=== PATIENT | female | born 1935 | race Caucasian/White ===

== ENCOUNTER 2020-06-16 10:35 | Inpatient (IN) | payer MEDICARE ==
[~2020-06-16] VITALS: Ht 147.3 cm; Wt 40.0 kg
--- NOTE | 2020-06-16 11:24 | RAD ---
EXAM: CHEST AP ONLY INDICATION: Reason: soa, cough / Spl. Instructions: / History: . TECHNIQUE: Single view COMPARISON: None FINDINGS: The heart size is normal. Great vessels show mild fullness of the bilateral pulmonary arteries. There is no hilar or mediastinal mass. Lungs are emphysematous and show no focal infiltrates. There is no pleural effusion or pneumothorax. There are no significant osseous abnormalities. IMPRESSION: COPD with mild enlargement of the bilateral pulmonary arteries. Correlate for any evidence of pulmonary arterial hypertension. No focal infiltrates in the lungs. Electronically signed by: King Mendoza MD (06/16/2020 11:21 AM) [id number]
[2020-06-16 11:31] LABS: BASO # 0.1 x10^3/uL (0.0-0.2); BASO % 1 % (0-3); EOS # 0.4 x10^3/uL (0.0-0.7); EOS % 4 % (0-3); HEMATOCRIT 33.6 % (36.0-47.0); HEMOGLOBIN 10.9 g/dL (12.0-15.5); LYMPH # 2.3 x10^3/uL (1.0-4.8); LYMPH % 25 % (24-48); MEAN CORPUSCULAR HEMOGLOBIN 27 pg (25-35); MEAN CORPUSCULAR HGB CONC 32 g/dL (31-37); MEAN CORPUSCULAR VOLUME 85 fL (79-100); MONO # 0.7 x10^3/uL (0.0-1.1); MONO % 7 % (0-9); NEUT # 5.9 x10^3/uL (1.8-7.7); NEUT % 63 % (31-73); PLATELET COUNT 177 x10^3/uL (140-400); RED BLOOD COUNT 3.96 x10^6/uL (3.50-5.40); RED CELL DISTRIBUTION WIDTH 20.5 % (11.5-14.5); WHITE BLOOD COUNT 9.3 x10^3/uL (4.0-11.0)
[2020-06-16 11:42] LABS: CALCIUM 8.9 mg/dL (8.5-10.1); CREATININE 0.9 mg/dL (0.6-1.0); GFR 59.8; POTASSIUM 4.1 mmol/L (3.5-5.1)
[2020-06-16 11:47] LABS: ALBUMIN 3.2 g/dL (3.4-5.0); ALBUMIN/GLOBULIN RATIO 0.7 (1.0-1.7); TOTAL BILIRUBIN 0.7 mg/dL (0.2-1.0); TOTAL PROTEIN 7.9 g/dL (6.4-8.2)
[2020-06-16 12:05] LABS: PROTHROMBIN TIME PATIENT 14.2 SEC (11.7-14.0)
[2020-06-16 12:24] LABS: BILIRUBIN,URINE NEGATIVE (NEG); CLARITY,URINE CLEAR; COLOR,URINE YELLOW; NITRITE,URINE NEGATIVE (NEG); PH,URINE 7.5 (<5.0-8.0); PROTEIN,URINE NEGATIVE (NEG-TRACE); UROBILINOGEN,URINE 0.2 mg/dL (0.2 mg/dL)
--- NOTE | 2020-06-16 12:35 | CONS ---
DATE OF CONSULTATION: 06/16/2020 PULMONARY CONSULTATION ATTENDING PHYSICIAN: Iraida Pathak MD REASON FOR CONSULTATION: Spontaneous pneumothorax. HISTORY OF PRESENT ILLNESS: The patient was brought into [facility] after she had an elective CAT scan for chronic cough done at diagnostic imaging. The CAT scan was reported as 30% pneumothorax and abnormal infiltrates. She was sent to the Emergency Room. In the Emergency Room, where I saw the patient, she appeared to be in no obvious respiratory distress. She was requiring 2 liters of oxygen. She said she has a chronic cough as long as she remembers. She looks very emaciated. She had lost about 50 pounds since the beginning of the year. I have talked to Dr. Pathak and he reports that she had history of colon cancer some 5 years ago. The patient denies any chest pains. No fever. No night sweats. No chills. I reviewed CT chest done at diagnostic imaging. She has right-sided pneumothorax about 30%. She also had some bilateral reticulonodular infiltrates and the right hilum looks prominent with some narrowing of the right bronchus intermedius. PAST MEDICAL HISTORY: 1. History of COPD, could be severe. 2. History of ongoing weight loss. 3. History of colon cancer. SURGERIES: No recent surgeries. ALLERGIES: HYDROCODONE AND MORPHINE. REVIEW OF SYSTEMS: Ten-point system obtained. Pertinent positives discussed in my present illness, otherwise noncontributory. All systems that were negative were reviewed as well. SOCIAL HISTORY: Smoked for about 30 years before quitting. PHYSICAL EXAMINATION: VITAL SIGNS: In the ER were reviewed. Pulse ox was 97% on 2 liters. NECK: Supple. LUNGS: With diminished breath sounds bilaterally. She is very emaciated. ABDOMEN: Soft. EXTREMITIES: With no pitting edema. LABORATORY DATA: Reviewed. Sodium 135, potassium 4.1. BUN 19, creatinine 0.9. Albumin is 3.2. Lipase 443. INR 1.1. IMPRESSION: 1. Acute hypoxic respiratory failure secondary to right-sided spontaneous pneumothorax. Chest x-ray done in the ER shows probably 15% pneumothorax. She is comfortable on 2 liters nasal cannula. 2. Chronic cough along with a 50-pound weight loss since the beginning of the year and bilateral reticulonodular infiltrates on the CT chest and also some bronchiectasis. 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 Malignancy should also be in the differential diagnosis. She does have a slightly narrowing of bronchus intermedius and prominent right hilum. She will benefit from CT chest with IV contrast. 3. History of colon cancer, details of which are not available. RECOMMENDATIONS: 1. We will continue with present oxygen. 2. Follow up chest x-ray to make sure there is no progression of pneumothorax. We will watch her conservatively for now. 3. We will need a CT chest with contrast to better assess for right hilar mass. 4. We will need sputum for AFB to rule out Mycobacterium avium complex infection. 5. Bronchodilators p.r.n. 6. We will obtain records from Dr. Pathak's office regarding history of colon cancer and the treatment and stage at that time. 7. Patient seen in ER. Discussed with ER physician. Discussed with Dr. Pathak. We will follow along with you. cct 35 min CHANDA SHOEMAKER MD DR: SHANON/connor JOB#: [id number] / [id number] RAFAT
[2020-06-16 12:43] LABS: BACTERIA,URINE 0 /HPF (0-FEW); RBC,URINE >40 /HPF (0-2); WBC,URINE 0 /HPF (0-4)
[2020-06-16] MEDS ORDERED: IOHEXOL 300 MG/ML 100ML VIAL. IV ONE (13:00)
[2020-06-16] MEDS ORDERED: ONDANSETRON PF 4 MG/2 ML VIAL. IV PRN (13:15)
[2020-06-16 16:10] VITALS: BP 176/68
--- NOTE | 2020-06-16 17:26 | PHYS DOC ---
Past Medical History Past Medical History: Asthma, COPD, CVA, [place], Stroke, Other Additional Past Medical Histor: "PRE-CANCEROUS COLON MASS" - REMOVED Past Surgical History: Colectomy, Other Additional Past Surgical Histo: BACK SURGERY, NECK SURGERY Smoking Status: Former Smoker Alcohol Use: None General Adult EDM: Chief Complaint: SHORTNESS OF BREATH HPI: HPI: Patient is a 85 year old was brought into [facility] after she had an elective CAT scan for chronic cough done at diagnostic imaging. The CAT scan was reported as 30% pneumothorax and abnormal infiltrates. She was sent to the Emergency Room for evaluation by her family physician, Dr. Webster. In the ER, she appeared to be in no obvious respiratory distress. She was requiring 2 liters of oxygen. She said she has a chronic cough as long as she remembers. She looks very emaciated. She had lost about 50 pounds since the beginning of the year. She also has history of colon cancer. Review of Systems: Review of Systems: Constitutional: Denies fever or chills. [] Eyes: Denies change in visual acuity. [] HENT: Denies nasal congestion or sore throat. [] Respiratory: Positive for cough and shortness of air Cardiovascular: No chest pain. GI: Denies abdominal pain, nausea, vomiting, bloody stools or diarrhea. [] : Denies dysuria. [] Musculoskeletal: Denies back pain or joint pain. [] Integument: Denies rash. [] Neurologic: Denies headache, focal weakness or sensory changes. [] Endocrine: Denies polyuria or polydipsia. [] Lymphatic: Denies swollen glands. [] Psychiatric: Denies depression or anxiety. [] Heart Score: Risk Factors: Risk Factors: DM, Current or recent (<one month) smoker, HTN, HLP, family history of CAD, obesity. Risk Scores: Score 0 - 3: 2.5% MACE over next 6 weeks - Discharge Home Score 4 - 6: 20.3% MACE over next 6 weeks - Admit for Clinical Observation Score 7 - 10: 72.7% MACE over next 6 weeks - Early Invasive Strategies Current Medications: Current Medications Medications (Trade) Dose Ordered Sig/Maia Start Time Stop Time Status Last Admin Dose Admin Iohexol (Omnipaque 300 Mg/ml) 75 ml 1X ONCE 06/16/20 13:00 06/16/20 13:01 IA Allergies: Allergies: Allergies Coded Allergies Type Severity Reaction Last Updated Verified hydrocodone Allergy Intermediate hives 06/16/20 Yes morphine Allergy Intermediate hives 06/16/20 Yes Physical Exam: PE: Constitutional: Well developed, well nourished, no acute distress, non-toxic appearance. [] HENT: Normocephalic, atraumatic, bilateral external ears normal, oropharynx moist, no oral exudates, nose normal. [] Eyes: PERRLA, EOMI, conjunctiva normal, no discharge. [] Neck: Normal range of motion, no tenderness, supple, no stridor. [] Cardiovascular:Heart rate regular rhythm, no murmur [] Lungs & Thorax: Bilateral breath sounds clear to auscultation [] Abdomen: Bowel sounds normal, soft, no tenderness, no masses, no pulsatile masses. [] Skin: Warm, dry, no erythema, no rash. [] Back: No tenderness, no CVA tenderness. [] Extremities: No tenderness, no cyanosis, no clubbing, ROM intact, no edema. [] Neurologic: Alert and oriented X 3, normal motor function, normal sensory function, no focal deficits noted. [] Psychologic: Affect normal, judgement normal, mood normal. [] Current Patient Data: Labs: Laboratory Tests Test 06/16/20 11:10 06/16/20 12:10 White Blood Count 9.3 x10^3/uL (4.0-11.0) Red Blood Count 3.96 x10^6/uL (3.50-5.40) Hemoglobin 10.9 g/dL (12.0-15.5) L Hematocrit 33.6 % (36.0-47.0) L Mean Corpuscular Volume 85 fL (79-100) Mean Corpuscular Hemoglobin 27 pg (25-35) Mean Corpuscular Hemoglobin Concent 32 g/dL (31-37) Red Cell Distribution Width 20.5 % (11.5-14.5) H Platelet Count 177 x10^3/uL (140-400) Neutrophils (%) (Auto) 63 % (31-73) Lymphocytes (%) (Auto) 25 % (24-48) Monocytes (%) (Auto) 7 % (0-9) Eosinophils (%) (Auto) 4 % (0-3) H Basophils (%) (Auto) 1 % (0-3) Neutrophils # (Auto) 5.9 x10^3/uL (1.8-7.7) Lymphocytes # (Auto) 2.3 x10^3/uL (1.0-4.8) Monocytes # (Auto) 0.7 x10^3/uL (0.0-1.1) Eosinophils # (Auto) 0.4 x10^3/uL (0.0-0.7) Basophils # (Auto) 0.1 x10^3/uL (0.0-0.2) Prothrombin Time 14.2 SEC (11.7-14.0) H Prothrombin Time INR 1.1 (0.8-1.1) Activated Partial Thromboplast Time 39 SEC (24-38) H Sodium Level 135 mmol/L (136-145) L Potassium Level 4.1 mmol/L (3.5-5.1) Chloride Level 96 mmol/L (98-107) L Carbon Dioxide Level 34 mmol/L (21-32) H Anion Gap 5 (6-14) L Blood Urea Nitrogen 19 mg/dL (7-20) Creatinine 0.9 mg/dL (0.6-1.0) Estimated GFR (Cockcroft-Gault) 59.8 BUN/Creatinine Ratio 21 (6-20) H Glucose Level 80 mg/dL (70-99) Calcium Level 8.9 mg/dL (8.5-10.1) Total Bilirubin 0.7 mg/dL (0.2-1.0) Aspartate Amino Transferase (AST) 38 U/L (15-37) H Alanine Aminotransferase (ALT) 40 U/L (14-59) Alkaline Phosphatase 76 U/L (46-116) Troponin I Quantitative < 0.017 ng/mL (0.000-0.055) Total Protein 7.9 g/dL (6.4-8.2) Albumin 3.2 g/dL (3.4-5.0) L Albumin/Globulin Ratio 0.7 (1.0-1.7) L Lipase 443 U/L (73-393) H Urine Collection Type Unknown Urine Color Yellow Urine Clarity Clear Urine pH 7.5 (<5.0-8.0) Urine Specific [place] 1.020 (1.000-1.030) Urine Protein Negative mg/dL (NEG-TRACE) Urine Glucose (UA) Negative mg/dL (NEG) Urine Ketones (Stick) Negative mg/dL (NEG) Urine Blood Moderate (NEG) Urine Nitrite Negative (NEG) Urine Bilirubin Negative (NEG) Urine Urobilinogen Dipstick 0.2 mg/dL (0.2 mg/dL) Urine Leukocyte Esterase Negative (NEG) Urine RBC >40 /HPF (0-2) Urine WBC 0 /HPF (0-4) Urine Bacteria 0 /HPF (0-FEW) Laboratory Tests 06/16/20 11:10 Laboratory Tests 06/16/20 11:10 Vital Signs: Vital Signs Date Time Temp Pulse Resp B/P (MAP) Pulse Ox O2 Delivery O2 Flow Rate FiO2 06/16/20 14:16 64 136/63 (87) 97 Nasal Cannula 2.0 06/16/20 10:50 98.3 22 98.3 EKG: EKG: [] Radiology/Procedures: Radiology/Procedures: [][facility] [address] [place] [address] IMAGING REPORT Signed PATIENT: LEROY PAREDES ACCOUNT: [id number] : 1935 LOCATION: ER AGE: 85 SEX: F EXAM STATUS: REG ER ORD. PHYSICIAN: HAYLEY PEREIRA DO REASON: soa, cough PROCEDURE: CHEST AP ONLY ADDENDUM Addendum: On additional review, there is lucency of the periphery of the right lung compatible with a pneumothorax. This could be moderate in size although detailed evaluation is better with cross sectional imaging. There is no evidence of tension. Discussed with Dr. Hayley Pereira by telephone at 11:33 AM on 06/16/2020 Electronically signed by: Velasquez Mendoza MD (06/16/2020 11:33 AM) [id number] DICTATED AND SIGNED BY: VELASQUEZ MENDOZA MD DATE: 06/16/20 1133 CC: IRAIDA WEBSTER MD; HAYLEY PEREIRA DO ~ EXAM: CHEST AP ONLY INDICATION: Reason: soa, cough / Spl. Instructions: / History: . TECHNIQUE: Single view COMPARISON: None FINDINGS: The heart size is normal. Great vessels show mild fullness of the bilateral pulmonary arteries. There is no hilar or mediastinal mass. Lungs are emphysematous and show no focal infiltrates. There is no pleural effusion or pneumothorax. There are no significant osseous abnormalities. IMPRESSION: COPD with mild enlargement of the bilateral pulmonary arteries. Correlate for any evidence of pulmonary arterial hypertension. No focal infiltrates in the lungs. Electronically signed by: Velasquez Mendoza MD (06/16/2020 11:21 AM) [id number] DICTATED and SIGNED BY: VELASQUEZ MENDOZA MD DATE: 06/16/20 1121 Course & Med Decision Making: Course & Med Decision Making Pertinent Labs and Imaging studies reviewed. (See chart for details) [] Dragon Disclaimer: Dragon Disclaimer: This electronic medical record was generated, in whole or in part, using a voice recognition dictation system. Departure Departure Impression: Primary Impression: Suspected 2019 novel coronavirus infection Additional Impression: Pneumothorax Disposition: ADMITTED INPATIENT Admitting Physician: Iraida Webster Condition: STABLE Justicifation of Admission Dx: Justifications for Admission: Justification of Admission Dx: Yes HAYLEY PEREIRA DO Jun 16, 2020 17:26
[2020-06-16] MEDS ORDERED: LEVO50TA72 PO (17:43)
[2020-06-16] MEDS ORDERED: LEVO75TA67 PO (17:43)
[2020-06-16] MEDS ORDERED: CARV25TA2 PO (17:43)
[2020-06-16] MEDS ORDERED: EZET10TA20 PO (17:43)
[2020-06-16] MEDS ORDERED: CLOP75TA PO (17:43)
[2020-06-16] MEDS ORDERED: TRAV5DRO EACHEYE (17:43)
[2020-06-16] MEDS ORDERED: VENTOLIN HFA18 GM INH (17:43)
[2020-06-16] MEDS ORDERED: ALPR0.254 PO (17:43)
[2020-06-16] MEDS ORDERED: METH5TAB2 PO (17:43)
[2020-06-16] MEDS ORDERED: FLUT12AE IH (17:43)
[2020-06-16] MEDS ORDERED: MECL-57 PO (17:43)
[2020-06-16] MEDS ORDERED: FURO20TA3 PO (17:43)
[2020-06-16] MEDS ORDERED: CHOL500021 PO (17:58)
[2020-06-16] MEDS ORDERED: MAGN100T6 PO (17:58)
[2020-06-16] MEDS ORDERED: FLUT9.9S NS (17:58)
[2020-06-16] MEDS ORDERED: LOPE1LIQ89 PO (17:58)
[2020-06-16] MEDS ORDERED: ASPI-630 PO (17:58)
[2020-06-16] MEDS ORDERED: BIOT1CAP3 PO (17:58)
[2020-06-16] MEDS ORDERED: FERR-36 PO (17:58)
[2020-06-16] MEDS ORDERED: LACT1CAP12 PO (17:58)
[2020-06-16] MEDS ORDERED: FLAX10003 PO (17:58)
[2020-06-16] MEDS ORDERED: VIT1TABL PO (17:58)
[2020-06-16] MEDS ORDERED: KRIL1CAP23 PO (17:58)
[2020-06-16] MEDS ORDERED: LORA10TA55 PO (17:58)
[2020-06-16] MEDS ORDERED: MECLIZINE HCL 12.5 MG TABLET. PO PRN (18:15)
[2020-06-16] MEDS ORDERED: VITAMIN B COMPLEX TABLET. PO PRN (18:30)
[2020-06-16] MEDS ORDERED: CETIRIZINE HCL 10 MG TABLET. PO PRN (18:30)
[2020-06-16 19:00] VITALS: BP 137/58
[2020-06-16] MEDS ORDERED: BUDESONIDE 0.5 MG/2 ML NEBU. NEB SCH (20:00)
[2020-06-16] MEDS: ALPRAZolam 0.25 MG TABLET PO SCH (20:46)
[2020-06-16] MEDS: METHADONE 5 MG TABLET. PO SCH (20:46)
[2020-06-16] MEDS: MAGNESIUM OXIDE 400 MG TABLET PO SCH (20:46)
[2020-06-16] MEDS: LATANOPROST 0.005% OPHTH SOLUTION 2.5ML BOTTLE. OU SCH (20:48)
[2020-06-16] MEDS: CARVEDILOL 6.25 MG TABLET. PO SCH (20:48)
[2020-06-16] MEDS: ALBUTEROL SULFATE 2.5 MG/3 ML NEBU. NEB SCH (20:49)
[2020-06-16] MEDS ORDERED: FLAXSEED OIL PO SCH (21:00)
[2020-06-16 23:00] VITALS: BP 146/70
[2020-06-17] MEDS: ALBUTEROL SULFATE 2.5 MG/3 ML NEBU. NEB SCH (00:05)
[2020-06-17] MEDS ORDERED: BUDESONIDE 0.5 MG/2 ML NEBU. NEB PRN (00:45)
[2020-06-17] MEDS ORDERED: ALBUTEROL SULFATE 2.5 MG/3 ML NEBU. NEB PRN (00:45)
[2020-06-17 03:41] VITALS: BP 135/62
[2020-06-17] MEDS: LEVOTHYROXINE 50 MCG TABLET PO SCH (05:50)
--- NOTE | 2020-06-17 06:15 | EKG ---
[facility] [address] [place] [address] Test Date: 2020-06-16 Test Time: 10:56:30 Pat Name: LEROY PAREDES Department: Room: Gender: F Sap Bpc Architect: : 1935 Requested By: HAYLEY PEREIRA Order Number: [id number] Reading MD: Measurements Intervals [place] Rate: 56 P: 63 MN: 188 QRS: -53 QRSD: 82 T: 48 QT: 432 QTc: 419 Interpretive Statements SINUS RHYTHM ABNORMAL LEFT AXIS DEVIATION LEFT ANTERIOR FASCICULAR BLOCK ABNORMAL ECG RI6.02 No previous ECG available for comparison
[2020-06-17 07:30] VITALS: BP 151/56
--- NOTE | 2020-06-17 08:19 | RAD ---
AP chest. HISTORY: Pneumothorax AP view was taken of the chest. There is a persistent small right pneumothorax without change compared to one day ago. The pneumothorax is noted laterally at the apex as well as along the base of the lung. There is diffuse interstitial lung disease. Heart is upper normal in size. The aorta is tortuous. IMPRESSION: 1. No change right pneumothorax. Electronically signed by: Juve Goetz MD (06/17/2020 8:16 AM) [id number]
--- NOTE | 2020-06-17 08:56 | PDOC ---
Provider Note Provider Note Pt seen.H&P to be dictated. Justicifation of Admission Dx: Justifications for Admission: Justification of Admission Dx: Yes BRII WEBSTER MD Jun 17, 2020 08:56
[2020-06-17] MEDS: LOPERAMIDE 2 MG/15 ML ORAL SUSP. PO SCH (09:00)
[2020-06-17] MEDS: FLUTICASONE 50MCG/NASAL SPRAY 16GM BOTTLE. NS SCH (09:00)
[2020-06-17] MEDS ORDERED: BIOTIN PO SCH (09:00)
[2020-06-17] MEDS: ALPRAZolam 0.25 MG TABLET PO SCH ×2 (09:04→20:51)
[2020-06-17] MEDS: CLOPIDOGREL BISULFATE 75 MG TABLET PO SCH (09:04)
[2020-06-17] MEDS: EZETIMIBE 10 MG TABLET. PO SCH (09:04)
[2020-06-17] MEDS: LACTOBACILLUS RHAMNOSUS GG 1 CAPSULE. PO SCH (09:04)
[2020-06-17] MEDS: FERROUS SULFATE 325 MG TABLET. PO SCH (09:04)
[2020-06-17] MEDS: ASPIRIN CHEWABLE 81 MG TABLET. PO SCH (09:04)
[2020-06-17] MEDS: OMEGA-3 FATTY ACIDS/FISH OIL 1,000 MG CAPSULE. PO SCH (09:04)
[2020-06-17] MEDS: FUROSEMIDE 20 MG TABLET PO SCH (09:05)
[2020-06-17] MEDS: CARVEDILOL 6.25 MG TABLET. PO SCH ×2 (09:06→17:00)
[2020-06-17] MEDS: METHADONE 5 MG TABLET. PO SCH ×4 (09:06→20:51)
[2020-06-17] MEDS ORDERED: CONTRAST GIVEN. MC PRN (09:45)
--- NOTE | 2020-06-17 09:59 | HP ---
ADMIT DATE: 06/16/2020 REASON FOR ADMISSION TO THE HOSPITAL: Spontaneous left pneumothorax. HISTORY OF PRESENT ILLNESS: The patient is an 85-year-old female, patient of Dr. Shetty. The patient had a CT of the chest, abdomen and pelvis for weight loss workup and the diagnostic imaging and the radiologist called me staying that the patient had 30% left pneumothorax. The patient was sent to [facility] for evaluation. Had x-ray, shows some pneumothorax. Pulmonary was consulted. The patient was admitted to the inpatient hospital. PAST MEDICAL HISTORY: She has a history of coronary artery disease, COPD, Quintero esophagus, arthritis, hypothyroidism, aortic valve disorder, reflux disease and had a colon cancer in the past. PAST SURGICAL HISTORY: Last colonoscopy in 2006, hysterectomy, colectomy in 2006, knee arthroscopy, neck surgery, bladder repair, partial colon resection in 2007. ALLERGIES: FENTANYL, HYDROCODONE, OXYCODONE AND CODEINE. MEDICATIONS AT HOME: The patient is on aspirin 81 mg daily, atorvastatin 40 mg daily, calcium with vitamin D, Coreg 6.25 twice a day, duloxetine 30 mg daily, fish oil daily, Flonase daily, Flovent 2 puffs twice a day, Lasix 40 mg daily, levothyroxine 75 mcg daily, loratadine 10 mg daily, magnesium 250 mg daily, meclizine for dizziness, methadone 5 mg 3 times a day, pantoprazole 20 mg daily, Plavix 75 mg daily, Travatan eyedrops 1 drop daily both eyes, Ventolin 2 puffs 4 times daily, vitamin B-complex daily, vitamin D daily, Xanax 0.25 p.r.n. twice a day, Zetia 10 mg daily. PERSONAL HISTORY: Former smoker. FAMILY HISTORY: Lung problems, osteoporosis. REVIEW OF SYMPTOMS: Denies any fever. Has some mild shortness of breath. Denies any chest pain. Rest of the 14-system was reviewed. The patient has lost like a significant weight loss in last 1 year and 11/2019, she was 89. Now, she is 89, so she lost 23 pounds in 8 months. PHYSICAL EXAMINATION: VITAL SIGNS: Temperature 98, pulse 80, respirations 20, blood pressure 130/80. HEENT: Head is atraumatic. Pupils equal. Oral cavity: No congestion. NECK: Supple. CHEST: Symmetrical, COPD, emaciated. CARDIOVASCULAR: S1, S2. LUNGS: Clear to auscultation. Decreased breath sounds, few crackles at the bases. ABDOMEN: Soft, bowel sounds present, no mass palpable. EXTERNAL GENITALIA: No Arguelles. RECTAL: Deferred. EXTREMITIES: No calf tenderness, no edema. Pulses 1+. NEUROLOGIC: Moving all extremities. No focal deficits noted. LABORATORY DATA: Shows CBC, chem profile were unremarkable. CT chest shows 30% pneumothorax, infiltrates in the bases. FINAL IMPRESSION: 1. Spontaneous Rt pneumothorax. 2. 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 3. Chronic obstructive pulmonary disease. 4. Significant weight loss. 5. Coronary artery disease. 6. Hypothyroidism. 7. Hypertension. 8. Hyperlipidemia. 9. History of colon cancer in 2007, partial colon resection. PLAN: At this time, admit to hospital. Pulmonary is consulted. Does not need chest tube, oxygen is stable. We will follow serial chest x-rays. We will get the reports of CT scans of abdomen and pelvis and Dr. Calderón is ordering another CT chest with contrast to look at any tumors in the chest. BRII WEBSTER MD DR: KEO/connor JOB#: [id number] / [id number] RAFAT
[2020-06-17] MEDS ORDERED: IOHEXOL 300 MG/ML 100ML VIAL. IV ONE (10:00)
--- NOTE | 2020-06-17 10:48 | PDOC ---
PULMONARY PROGRESS NOTES DATE: 06/17/20 TIME: 10:45 Subjective feels better no soa Vitals Vital Signs Date Time Temp Pulse Resp B/P (MAP) Pulse Ox O2 Delivery O2 Flow Rate FiO2 06/17/20 10:09 16 Nasal Cannula 3.0 06/17/20 09:06 58 151/56 06/17/20 07:30 96.7 98 96.7 General: Alert, No acute distress Lungs: Other (decrease bs) Cardiovascular: S1 Abdomen: Soft Neuro Exam: Alert Extremities: No Edema Skin: Warm Labs Laboratory Tests Test 06/16/20 11:10 06/16/20 12:10 White Blood Count 9.3 x10^3/uL (4.0-11.0) Red Blood Count 3.96 x10^6/uL (3.50-5.40) Hemoglobin 10.9 g/dL (12.0-15.5) Hematocrit 33.6 % (36.0-47.0) Mean Corpuscular Volume 85 fL (79-100) Mean Corpuscular Hemoglobin 27 pg (25-35) Mean Corpuscular Hemoglobin Concent 32 g/dL (31-37) Red Cell Distribution Width 20.5 % (11.5-14.5) Platelet Count 177 x10^3/uL (140-400) Neutrophils (%) (Auto) 63 % (31-73) Lymphocytes (%) (Auto) 25 % (24-48) Monocytes (%) (Auto) 7 % (0-9) Eosinophils (%) (Auto) 4 % (0-3) Basophils (%) (Auto) 1 % (0-3) Neutrophils # (Auto) 5.9 x10^3/uL (1.8-7.7) Lymphocytes # (Auto) 2.3 x10^3/uL (1.0-4.8) Monocytes # (Auto) 0.7 x10^3/uL (0.0-1.1) Eosinophils # (Auto) 0.4 x10^3/uL (0.0-0.7) Basophils # (Auto) 0.1 x10^3/uL (0.0-0.2) Prothrombin Time 14.2 SEC (11.7-14.0) Prothromb Time International Ratio 1.1 (0.8-1.1) Activated Partial Thromboplast Time 39 SEC (24-38) Sodium Level 135 mmol/L (136-145) Potassium Level 4.1 mmol/L (3.5-5.1) Chloride Level 96 mmol/L (98-107) Carbon Dioxide Level 34 mmol/L (21-32) Anion Gap 5 (6-14) Blood Urea Nitrogen 19 mg/dL (7-20) Creatinine 0.9 mg/dL (0.6-1.0) Estimated GFR (Cockcroft-Gault) 59.8 BUN/Creatinine Ratio 21 (6-20) Glucose Level 80 mg/dL (70-99) Calcium Level 8.9 mg/dL (8.5-10.1) Total Bilirubin 0.7 mg/dL (0.2-1.0) Aspartate Amino Transf (AST/SGOT) 38 U/L (15-37) Alanine Aminotransferase (ALT/SGPT) 40 U/L (14-59) Alkaline Phosphatase 76 U/L (46-116) Troponin I Quantitative < 0.017 ng/mL (0.000-0.055) Total Protein 7.9 g/dL (6.4-8.2) Albumin 3.2 g/dL (3.4-5.0) Albumin/Globulin Ratio 0.7 (1.0-1.7) Lipase 443 U/L (73-393) Urine Collection Type Unknown Urine Color Yellow Urine Clarity Clear Urine pH 7.5 (<5.0-8.0) Urine Specific [place] 1.020 (1.000-1.030) Urine Protein Negative mg/dL (NEG-TRACE) Urine Glucose (UA) Negative mg/dL (NEG) Urine Ketones (Stick) Negative mg/dL (NEG) Urine Blood Moderate (NEG) Urine Nitrite Negative (NEG) Urine Bilirubin Negative (NEG) Urine Urobilinogen Dipstick 0.2 mg/dL (0.2 mg/dL) Urine Leukocyte Esterase Negative (NEG) Urine RBC >40 /HPF (0-2) Urine WBC 0 /HPF (0-4) Urine Bacteria 0 /HPF (0-FEW) Laboratory Tests Test 06/16/20 11:10 06/16/20 12:10 White Blood Count 9.3 x10^3/uL (4.0-11.0) Red Blood Count 3.96 x10^6/uL (3.50-5.40) Hemoglobin 10.9 g/dL (12.0-15.5) Hematocrit 33.6 % (36.0-47.0) Mean Corpuscular Volume 85 fL (79-100) Mean Corpuscular Hemoglobin 27 pg (25-35) Mean Corpuscular Hemoglobin Concent 32 g/dL (31-37) Red Cell Distribution Width 20.5 % (11.5-14.5) Platelet Count 177 x10^3/uL (140-400) Neutrophils (%) (Auto) 63 % (31-73) Lymphocytes (%) (Auto) 25 % (24-48) Monocytes (%) (Auto) 7 % (0-9) Eosinophils (%) (Auto) 4 % (0-3) Basophils (%) (Auto) 1 % (0-3) Neutrophils # (Auto) 5.9 x10^3/uL (1.8-7.7) Lymphocytes # (Auto) 2.3 x10^3/uL (1.0-4.8) Monocytes # (Auto) 0.7 x10^3/uL (0.0-1.1) Eosinophils # (Auto) 0.4 x10^3/uL (0.0-0.7) Basophils # (Auto) 0.1 x10^3/uL (0.0-0.2) Prothrombin Time 14.2 SEC (11.7-14.0) Prothromb Time International Ratio 1.1 (0.8-1.1) Activated Partial Thromboplast Time 39 SEC (24-38) Sodium Level 135 mmol/L (136-145) Potassium Level 4.1 mmol/L (3.5-5.1) Chloride Level 96 mmol/L (98-107) Carbon Dioxide Level 34 mmol/L (21-32) Anion Gap 5 (6-14) Blood Urea Nitrogen 19 mg/dL (7-20) Creatinine 0.9 mg/dL (0.6-1.0) Estimated GFR (Cockcroft-Gault) 59.8 BUN/Creatinine Ratio 21 (6-20) Glucose Level 80 mg/dL (70-99) Calcium Level 8.9 mg/dL (8.5-10.1) Total Bilirubin 0.7 mg/dL (0.2-1.0) Aspartate Amino Transf (AST/SGOT) 38 U/L (15-37) Alanine Aminotransferase (ALT/SGPT) 40 U/L (14-59) Alkaline Phosphatase 76 U/L (46-116) Troponin I Quantitative < 0.017 ng/mL (0.000-0.055) Total Protein 7.9 g/dL (6.4-8.2) Albumin 3.2 g/dL (3.4-5.0) Albumin/Globulin Ratio 0.7 (1.0-1.7) Lipase 443 U/L (73-393) Urine Collection Type Unknown Urine Color Yellow Urine Clarity Clear Urine pH 7.5 (<5.0-8.0) Urine Specific [place] 1.020 (1.000-1.030) Urine Protein Negative mg/dL (NEG-TRACE) Urine Glucose (UA) Negative mg/dL (NEG) Urine Ketones (Stick) Negative mg/dL (NEG) Urine Blood Moderate (NEG) Urine Nitrite Negative (NEG) Urine Bilirubin Negative (NEG) Urine Urobilinogen Dipstick 0.2 mg/dL (0.2 mg/dL) Urine Leukocyte Esterase Negative (NEG) Urine RBC >40 /HPF (0-2) Urine WBC 0 /HPF (0-4) Urine Bacteria 0 /HPF (0-FEW) Medications Active Scripts Medications Dose Route/Sig Max Daily Dose Days Date Category Loperamide HCl 1 Mg/7.5 Ml Liquid 2 Mg PO DAILY 06/16/20 Reported Iron (Ferrous Sulfate) 325 Mg Tablet 1 Tab PO DAILY 30 06/16/20 Reported Flax Oil (Flaxseed Oil) 1,000 Mg Capsule 1 Cap PO BID 30 06/16/20 Reported Aspirin 81 Mg Tab.chew 1 Tab PO DAILY 06/16/20 Reported Magnesium Citrate 100 Mg Tablet 1 Tab PO QHS 30 06/16/20 Reported Probiotic & Acidophilus Cap (Lactobac Cmb #3/Fos/Pantethine) 1 Each Capsule 1 Cap PO DAILY 30 06/16/20 Reported Brain Veifj-Mkq-Xu Q10 Tablet (Vit B Cmplx & C#11/Ca/Dha/Q10) 1 Each Tablet 1 Each PO PRN DAILY PRN 06/16/20 Reported Biotin 1 Mg Capsule 1 Cap PO DAILY 30 06/16/20 Reported D3-50 (Cholecalciferol (Vitamin D3)) 50,000 Unit Capsule 1 Cap PO WEEKLY 28 06/16/20 Reported Megared [place]-3 Krill Oil Sfgl (Krill/Om-3/Dha/Epa/Phospho/Ast) 1 Each Capsule 1 Cap PO DAILY 30 06/16/20 Reported Loratadine 10 Mg Tab.rapdis 10 Mg PO PRN DAILY PRN 06/16/20 Reported Flonase Allergy Relief (Fluticasone Propionate) 9.9 Ml [place].susp 2 Sprays NS DAILY 06/16/20 Reported Ventolin Hfa Inhaler (Albuterol Sulfate) 18 Gm Hfa.aer.ad 2 Puff INH Q4HRS 06/16/20 Reported Flovent 110MCG Hfa (Fluticasone Propionate) 12 Gm Aer.w.adap 2 Puff IH BID 06/16/20 Reported Travatan Z (Travoprost) 5 Ml Drops 1 Drop EACHEYE QHS 06/16/20 Reported Alprazolam 0.25 Mg Tablet 1 Tab PO BID 06/16/20 Reported Methadone Hcl 5 Mg Tablet 1 Tab PO QID 06/16/20 Reported Motion-Time (Meclizine HCl) 25 Mg Tab.chew 25 Mg PO PRN PRN 06/16/20 Reported Clopidogrel (Clopidogrel Bisulfate) 75 Mg Tablet 1 Tab PO DAILY 06/16/20 Reported Furosemide 20 Mg Tablet 1 Tab PO DAILY 06/16/20 Reported Carvedilol 25 Mg Tablet 6.25 Mg PO BIDWMEALS 06/16/20 Reported Zetia (Ezetimibe) 10 Mg Tablet 1 Tab PO DAILY 30 06/16/20 Reported Levo-T (Levothyroxine Sodium) 75 Mcg Tablet 1 Tab PO QSASU 30 06/16/20 Reported Levo-T (Levothyroxine Sodium) 50 Mcg Tablet 1 Tab PO DAILY 30 06/16/20 Reported Impression . 1. Acute hypoxic respiratory failure secondary to right-sided spontaneous pneumothorax. Chest x-ray shows probably 15% pneumothorax. She is comfortable on 2 liters nasal cannula. 2. Chronic cough along with a 50-pound weight loss since the beginning of the year and bilateral reticulonodular infiltrates on the CT chest and also some bronchiectasis. 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 Malignancy should also be in the differential diagnosis. She does have a slightly narrowing of bronchus intermedius and prominent right hilum. She will benefit from CT chest with IV contrast. 3. History of colon cancer, per patient it was pre cancerous, had surgery Plan . 1. We will continue with present oxygen. 2. Follow up chest x-ray 06/17 is stable. there is no progression of pne umothorax. We will watch her conservatively for now. 3. CT chest with contrast today to better assess for right hilar mass. 4. We will need sputum for AFB to rule out Mycobacterium avium complex infection. 5. Bronchodilators p.r.n. 6. We will obtain records from Dr. Pathak's office regarding history of colon cancer and the treatment and stage at that time. 7. Discussed with Dr. Pathak. CHANDA SHOEMAKER MD Jun 17, 2020 10:48
[2020-06-17 11:00] VITALS: BP 119/52
--- NOTE | 2020-06-17 12:30 | NUR ---
SW following. Reviewed chart and discussed with RN. Pt from home with spouse. Pt plans to return home at discharge and stated no concerns. Pt on 3l 02 but does not have home 02. SW spoke with pt to coordinate care. Pt stated she recently discharged from [facility] and did complete HH with [facility] per a stroke. SW requested PT/OT orders from RN. Pt on oral medications. Pt COVID pending. Pt on a regular diet. Pt to have CT tomorrow as 2 can't be done within 24 hours of eachother per nursing report. SW to follow.
[2020-06-17 15:00] VITALS: BP 109/53
--- NOTE | 2020-06-17 17:35 | RAD ---
EXAM: CT Chest with IV contrast INDICATION: Reason: PTX, possible right hilar mass / Spl. Instructions: omni 300 60ml / History: TECHNIQUE: Multi-detector row CT images were acquired from the thoracic inlet through the upper abdomen with the use of IV contrast. Sagittal and coronal images were acquired from the transaxial data. All CT scans performed at this facility utilize dose optimization techniques as appropriate to the exam, including the following: Automated exposure control and adjustment of the mA and/or KV according to patient size (this includes techniques or standardized protocols for targeted exams where dose is indication/reason for exam). IV CONTRAST: Administered COMPARISON: Chest x-ray 06/17/2020 at 7:37 AM FINDINGS: CARDIOVASCULAR: Normal caliber thoracic aorta with scattered mural calcifications. There is a two-vessel arch. The pulmonary arteries are sufficiently opacified to exclude a central pulmonary embolus down to the subsegmental levels. Heart is normal in size and shows no pericardial effusion. However, there is concave deformity to the right ventricular chamber. MEDIASTINUM & KAREN: Mild mediastinal adenopathy is present with precarinal node measuring 1.1 cm, and right infrahilar lymph node measuring 1.1 cm. Right hilar adenopathy is also evident with a 1.3 cm node at the right hilum present. LUNGS: Lungs show centrilobular emphysema and numerous tree-in-bud opacities and reticular densities primarily in the periphery of the lungs with more confluent atelectasis or consolidation in the lingula. PLEURAL SPACE: There is a trace right pleural effusion. There is a moderate right pneumothorax. This occupies approximately 20 percent of the right hemithorax. A deep sulcus sign is present. OSSEOUS & SOFT TISSUE: Unremarkable ABDOMEN: The visualized portions of the upper abdomen are unremarkable. IMPRESSION: COPD with reticulonodular densities in the lungs, suggesting sequelae of atypical infection (such as mycobacterium avium intracellulare) with associated mediastinal and right hilar adenopathy. A moderate right pneumothorax is present, associated with concave bowing of the right heart border. Discussed with Dr. Wilde by telephone at 5:30 pm on 06/17/20 Electronically signed by: King Mendoza MD (06/17/2020 5:32 PM) [id number]
[2020-06-17 19:21] VITALS: BP 126/55
[2020-06-17] MEDS: LATANOPROST 0.005% OPHTH SOLUTION 2.5ML BOTTLE. OU SCH (20:51)
[2020-06-17] MEDS: MAGNESIUM OXIDE 400 MG TABLET PO SCH (20:51)
[2020-06-17] MEDS ORDERED: SENNOSIDES 8.6 MG TABLET PO PRN (21:15)
[2020-06-17 23:50] VITALS: BP 116/63
[2020-06-18 03:30] VITALS: BP 143/70
[2020-06-18] MEDS: LEVOTHYROXINE 50 MCG TABLET PO SCH (05:42)
[2020-06-18 07:00] VITALS: BP 125/58
--- NOTE | 2020-06-18 08:29 | PDOC ---
PROGRESS NOTES Date of Service: DATE: 06/18/20 TIME: 08:27 Subjective Subjective coughing up blood tinged sputum Objective Objective Vital Signs Date Time Temp Pulse Resp B/P (MAP) Pulse Ox O2 Delivery O2 Flow Rate FiO2 06/18/20 03:30 98.0 69 24 143/70 (94) 95 Nasal Cannula 2.0 98.0 Intake and Output 06/18/20 07:00 Intake Total 680 ml Balance 680 ml Intake Oral 680 ml # Voids 4 Physical Exam Abdomen: Normal bowel sounds, Soft Heart: Regular rate, Normal S1 Extremities: No clubbing General: Alert, Other (emaciated) HEENT: Atraumatic, Other (few crackes at bases) Neuro: Normal speech Psych/Mental Status: Mental status NL Skin: No breakdown Diagnosis Problem List Problems Medical Problems: (1) Pneumothorax Status: Acute (2) Suspected 2019 novel coronavirus infection Status: Acute Assessment Assessment Problems Medical Problems: (1) Pneumothorax Status: Acute (2) Suspected 2019 novel coronavirus infection Status: Acute FINAL IMPRESSION: 1. Spontaneous Rt pneumothorax. 2. 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 3. Chronic obstructive pulmonary disease. 4. Significant weight loss. 5. Coronary artery disease. 6. Hypothyroidism. 7. Hypertension. 8. Hyperlipidemia. 9. History of colon cancer in 2007, partial colon resection. PLAN: COVID -19 neg sputum c/s pending CT chest -possible atypical mycobacterium. spoke with Dr Calderón. ID consult today pt/ot. labs ok. At this time, admit to hospital. Pulmonary is consulted. Does not need chest tube, oxygen is stable. We will follow serial chest x-rays. We will get the reports of CT scans of abdomen and pelvis and Dr. Calderón is ordering another CT chest with contrast to look at any tumors in the chest. Plan Plan of Care Problems Medical Problems: (1) Pneumothorax Status: Acute (2) Suspected 2019 novel coronavirus infection Status: Acute Comment Review of Relevant I have reviewed the following items lizette (where applicable) has been applied. Labs Microbiology 06/16/20 Blood Culture - Preliminary, Resulted NO GROWTH AFTER 1 DAY Medications Current Medications Aspirin (Aspirin Chewable) 81 mg DAILY PO Last administered on 06/17/20at 09:04; Start 06/17/20 at 09:00 Clopidogrel Bisulfate (Plavix) 75 mg DAILY PO Last administered on 06/17/20at 09:04; Start 06/17/20 at 09:00 Ergocalciferol (Vitamin D2) 50,000 unit WEEKLY PO ; Start 06/23/20 at 09:00 EZETIMIBE (Zetia) 10 mg DAILY PO Last administered on 06/17/20at 09:04; Start 06/17/20 at 09:00 Ferrous Sulfate (Feosol) 325 mg DAILY PO Last administered on 06/17/20 09:04; Start 06/17/20 at 09:00 Fish Oil (Fish Oil) 1,000 mg DAILY PO Last administered on 06/17/20 09:04; Start 06/17/20 at 09:00 Fluticasone Propionate (Flonase) 2 spray DAILY NS Last administered on 06/17/20at 09:00; Start 06/17/20 at 09:00 Furosemide (Lasix) 20 mg DAILY PO Last administered on 06/17/20at 09:05; Start 06/17/20 at 09:00 Info (CONTRAST GIVEN -- Rx MONITORING) 1 each PRN DAILY PRN MC SEE COMMENTS; Start 06/17/20 at 09:45; Stop 06/19/20 at 09:44 Iohexol (Omnipaque 300 Mg/ml) 60 ml 1X ONCE IV Last administered on 06/17/20at 10:00; Start 06/17/20 at 10:00; Stop 06/17/20 at 10:01; Status DC Lactobacillus Rhamnosus (Culturelle) 1 cap DAILY PO Last administered on at 09:04; Start 06/17/20 at 09:00 Levothyroxine Sodium (Synthroid) 75 mcg QSASU@0600 PO ; Start 06/19/20 at 06:00 Loperamide HCl (Immodium Oral Susp) 2 mg DAILY PO ; Start 06/17/20 at 09:00 Non-Formulary Medication (Biotin ) 1 cap DAILY PO ; Start 06/17/20 at 09:00; Status UNV Sennosides (Senna) 8.6 mg PRN BID PRN PO CONSTIPATION 1ST CHOICE Last administered on 06/17/20at 21:37; Start 06/17/20 at 21:15 Vitals/I & O Vital Sign - Last 24 Hours 06/17/20 06/17/20 06/17/20 06/17/20 09:06 09:06 10:09 11:00 Temp 96.8 96.8 Pulse 58 73 Resp 16 16 B/P (MAP) 151/56 119/52 (74) Pulse Ox 99 O2 Delivery Room Air Nasal Cannula Room Air O2 Flow Rate 3.0 06/17/20 06/17/20 06/17/20 06/17/20 13:01 14:05 15:00 16:07 Temp 97.0 97.0 Pulse 82 Resp 12 B/P (MAP) 109/53 (71) Pulse Ox 99 98 98 O2 Delivery Nasal Cannula Nasal Cannula Room Air Nasal Cannula O2 Flow Rate 3.0 3.0 3.0 06/17/20 06/17/20 06/17/20 06/17/20 17:00 19:21 20:00 23:50 Temp 98.0 96.8 98.0 96.8 Pulse 67 75 80 Resp 20 24 B/P (MAP) 99/62 126/55 (78) 116/63 (80) Pulse Ox 95 97 O2 Delivery Nasal Cannula Nasal Cannula Nasal Cannula O2 Flow Rate 2.0 2.0 2.0 06/18/20 03:30 Temp 98.0 98.0 Pulse 69 Resp 24 B/P (MAP) 143/70 (94) Pulse Ox 95 O2 Delivery Nasal Cannula O2 Flow Rate 2.0 Intake and Output 06/17/20 06/17/20 06/18/20 15:00 23:00 07:00 Intake Total 240 ml 240 ml 200 ml Balance 240 ml 240 ml 200 ml Justicifation of Admission Dx: Justifications for Admission: Justification of Admission Dx: Yes Nutrition Consultation Dietary Evaluation: Recommendations by RD: Dietary education by RD, Increase Calorie Intake, Protein supplementation Comments: ensure tid Expected Outcomes/Goals: to meet >75% est nutr needs Interpretation of weight loss: >10% in 6 months Malnutrition Findings: Body Fat Depletion (Non Severe: Mod to Severe Weight Status: Underweight BRII WEBSTER MD Jun 18, 2020 08:29
--- NOTE | 2020-06-18 08:40 | RAD ---
EXAM: PORTABLE CHEST 1V INDICATION: Reason: PTX / Spl. Instructions: / History: . TECHNIQUE: Single view COMPARISON: Chest x-ray previous day at 7:37 AM FINDINGS: The heart size is normal. The great vessels appear unremarkable. There is no hilar or mediastinal mass. Diffuse reticular densities remain present without focal parenchymal consolidation. A moderate right pneumothorax remains present without evidence of mediastinal shift. There are no significant osseous abnormalities. IMPRESSION: Moderate right pneumothorax without mediastinal shift. No significant radiographic interval change. Electronically signed by: King Mendoza MD (06/18/2020 8:37 AM) [id number]
[2020-06-18 09:44] LABS: AMYLASE 99 U/L (25-115); LIPASE 700 U/L (73-393)
--- NOTE | 2020-06-18 10:44 | PDOC ---
PULMONARY PROGRESS NOTES DATE: 06/18/20 TIME: 10:40 Subjective feels better no soa Vitals Vital Signs Date Time Temp Pulse Resp B/P (MAP) Pulse Ox O2 Delivery O2 Flow Rate FiO2 06/18/20 07:00 98.0 81 18 125/58 (80) 99 Nasal Cannula 2.0 98.0 General: Alert, No acute distress Lungs: Other (decrease bs) Cardiovascular: S1 Abdomen: Soft Neuro Exam: Alert Extremities: No Edema Skin: Warm Labs Laboratory Tests Test 06/16/20 11:00 06/16/20 11:10 06/16/20 12:10 06/18/20 09:05 Coronavirus (PCR) Not detected (Not Detected) White Blood Count 9.3 x10^3/uL (4.0-11.0) Red Blood Count 3.96 x10^6/uL (3.50-5.40) Hemoglobin 10.9 g/dL (12.0-15.5) Hematocrit 33.6 % (36.0-47.0) Mean Corpuscular Volume 85 fL (79-100) Mean Corpuscular Hemoglobin 27 pg (25-35) Mean Corpuscular Hemoglobin Concent 32 g/dL (31-37) Red Cell Distribution Width 20.5 % (11.5-14.5) Platelet Count 177 x10^3/uL (140-400) Neutrophils (%) (Auto) 63 % (31-73) Lymphocytes (%) (Auto) 25 % (24-48) Monocytes (%) (Auto) 7 % (0-9) Eosinophils (%) (Auto) 4 % (0-3) Basophils (%) (Auto) 1 % (0-3) Neutrophils # (Auto) 5.9 x10^3/uL (1.8-7.7) Lymphocytes # (Auto) 2.3 x10^3/uL (1.0-4.8) Monocytes # (Auto) 0.7 x10^3/uL (0.0-1.1) Eosinophils # (Auto) 0.4 x10^3/uL (0.0-0.7) Basophils # (Auto) 0.1 x10^3/uL (0.0-0.2) Prothrombin Time 14.2 SEC (11.7-14.0) Prothromb Time International Ratio 1.1 (0.8-1.1) Activated Partial Thromboplast Time 39 SEC (24-38) Sodium Level 135 mmol/L (136-145) Potassium Level 4.1 mmol/L (3.5-5.1) Chloride Level 96 mmol/L (98-107) Carbon Dioxide Level 34 mmol/L (21-32) Anion Gap 5 (6-14) Blood Urea Nitrogen 19 mg/dL (7-20) Creatinine 0.9 mg/dL (0.6-1.0) Estimated GFR (Cockcroft-Gault) 59.8 BUN/Creatinine Ratio 21 (6-20) Glucose Level 80 mg/dL (70-99) Calcium Level 8.9 mg/dL (8.5-10.1) Total Bilirubin 0.7 mg/dL (0.2-1.0) Aspartate Amino Transf (AST/SGOT) 38 U/L (15-37) Alanine Aminotransferase (ALT/SGPT) 40 U/L (14-59) Alkaline Phosphatase 76 U/L (46-116) Troponin I Quantitative < 0.017 ng/mL (0.000-0.055) Total Protein 7.9 g/dL (6.4-8.2) Albumin 3.2 g/dL (3.4-5.0) Albumin/Globulin Ratio 0.7 (1.0-1.7) Lipase 443 U/L (73-393) 700 U/L (73-393) Urine Collection Type Unknown Urine Color Yellow Urine Clarity Clear Urine pH 7.5 (<5.0-8.0) Urine Specific [place] 1.020 (1.000-1.030) Urine Protein Negative mg/dL (NEG-TRACE) Urine Glucose (UA) Negative mg/dL (NEG) Urine Ketones (Stick) Negative mg/dL (NEG) Urine Blood Moderate (NEG) Urine Nitrite Negative (NEG) Urine Bilirubin Negative (NEG) Urine Urobilinogen Dipstick 0.2 mg/dL (0.2 mg/dL) Urine Leukocyte Esterase Negative (NEG) Urine RBC >40 /HPF (0-2) Urine WBC 0 /HPF (0-4) Urine Bacteria 0 /HPF (0-FEW) Amylase Level 99 U/L (25-115) Thyroid Stimulating Hormone (TSH) 5.849 uIU/mL (0.358-3.74) Laboratory Tests Test 06/18/20 09:05 Amylase Level 99 U/L (25-115) Lipase 700 U/L (73-393) Thyroid Stimulating Hormone (TSH) 5.849 uIU/mL (0.358-3.74) Medications Active Scripts Medications Dose Route/Sig Max Daily Dose Days Date Category Loperamide HCl 1 Mg/7.5 Ml Liquid 2 Mg PO DAILY 06/16/20 Reported Iron (Ferrous Sulfate) 325 Mg Tablet 1 Tab PO DAILY 30 06/16/20 Reported Flax Oil (Flaxseed Oil) 1,000 Mg Capsule 1 Cap PO BID 30 06/16/20 Reported Aspirin 81 Mg Tab.chew 1 Tab PO DAILY 06/16/20 Reported Magnesium Citrate 100 Mg Tablet 1 Tab PO QHS 30 06/16/20 Reported Probiotic & Acidophilus Cap (Lactobac Cmb #3/Fos/Pantethine) 1 Each Capsule 1 Cap PO DAILY 30 06/16/20 Reported Brain Zezpy-Asz-Zn Q10 Tablet (Vit B Cmplx & C#11/Ca/Dha/Q10) 1 Each Tablet 1 Each PO PRN DAILY PRN 06/16/20 Reported Biotin 1 Mg Capsule 1 Cap PO DAILY 30 06/16/20 Reported D3-50 (Cholecalciferol (Vitamin D3)) 50,000 Unit Capsule 1 Cap PO WEEKLY 28 06/16/20 Reported Megared Cook Sta-3 Krill Oil Sfgl (Krill/Om-3/Dha/Epa/Phospho/Ast) 1 Each Capsule 1 Cap PO DAILY 30 06/16/20 Reported Loratadine 10 Mg Tab.rapdis 10 Mg PO PRN DAILY PRN 06/16/20 Reported Flonase Allergy Relief (Fluticasone Propionate) 9.9 Ml [place].susp 2 Sprays NS DAILY 06/16/20 Reported Ventolin Hfa Inhaler (Albuterol Sulfate) 18 Gm Hfa.aer.ad 2 Puff INH Q4HRS 06/16/20 Reported Flovent 110MCG Hfa (Fluticasone Propionate) 12 Gm Aer.w.adap 2 Puff IH BID 06/16/20 Reported Travatan Z (Travoprost) 5 Ml Drops 1 Drop EACHEYE QHS 06/16/20 Reported Alprazolam 0.25 Mg Tablet 1 Tab PO BID 06/16/20 Reported Methadone Hcl 5 Mg Tablet 1 Tab PO QID 06/16/20 Reported Motion-Time (Meclizine HCl) 25 Mg Tab.chew 25 Mg PO PRN PRN 06/16/20 Reported Clopidogrel (Clopidogrel Bisulfate) 75 Mg Tablet 1 Tab PO DAILY 06/16/20 Reported Furosemide 20 Mg Tablet 1 Tab PO DAILY 06/16/20 Reported Carvedilol 25 Mg Tablet 6.25 Mg PO BIDWMEALS 06/16/20 Reported Zetia (Ezetimibe) 10 Mg Tablet 1 Tab PO DAILY 30 06/16/20 Reported Levo-T (Levothyroxine Sodium) 75 Mcg Tablet 1 Tab PO QSASU 30 06/16/20 Reported Levo-T (Levothyroxine Sodium) 50 Mcg Tablet 1 Tab PO DAILY 30 06/16/[address] chest COPD with reticulonodular densities in the lungs, suggesting sequelae of atypical infection (such as mycobacterium avium intracellulare) with associated mediastinal and right hilar adenopathy. A moderate right pneumothorax is present, associated with concave bowing of the right heart border. Discussed with Dr. Wilde by telephone at 5:30 pm on 06/17/20 Electronically signed by: King Mendoza MD (06/17/2020 5:32 PM) [id number] Impression . 1. Acute hypoxic respiratory failure secondary to right-sided spontaneous pneumothorax. She is comfortable on 2 liters nasal cannula. 2. Chronic cough along with a 50-pound weight loss since the beginning of the year and bilateral reticulonodular infiltrates on the CT chest and also some bronchiectasis. 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 No obvious Malignancy seen on CT chest 3. History of colon cancer, per patient it was pre cancerous, had surgery Plan . 1. We will continue with present oxygen. 2. Follow up chest x-ray 06/18 is stable. there is no progression of pneumothorax. In fact todays cxr looks better per my review We will watch her conservatively for now for another day 3. CT chest with contrast reviewed. Highly suspected for MAC 4. We will need sputum for AFB to rule out Mycobacterium avium complex infection. results P, 2 sputum sent 5. Bronchodilators p.r.n. 6. consult ID. If MAC is confirmed, will re assess her tolerability for termite treater helper Rx with 3 drugs 7. Discuss[address] with Dr. Pathak. CHANDA SHOEMAKER MD Jun 18, 2020 10:44
[2020-06-18] MEDS: LACTOBACILLUS RHAMNOSUS GG 1 CAPSULE. PO SCH (10:51)
[2020-06-18] MEDS: FERROUS SULFATE 325 MG TABLET. PO SCH (10:51)
[2020-06-18] MEDS: CLOPIDOGREL BISULFATE 75 MG TABLET PO SCH (10:52)
[2020-06-18] MEDS: ALPRAZolam 0.25 MG TABLET PO SCH ×2 (10:52→21:25)
[2020-06-18] MEDS: METHADONE 5 MG TABLET. PO SCH ×4 (10:52→21:48)
[2020-06-18] MEDS: OMEGA-3 FATTY ACIDS/FISH OIL 1,000 MG CAPSULE. PO SCH (10:52)
[2020-06-18] MEDS: FUROSEMIDE 20 MG TABLET PO SCH (10:52)
[2020-06-18] MEDS: CARVEDILOL 6.25 MG TABLET. PO SCH ×2 (10:52→17:57)
[2020-06-18] MEDS: ASPIRIN CHEWABLE 81 MG TABLET. PO SCH (10:53)
[2020-06-18] MEDS: FLUTICASONE 50MCG/NASAL SPRAY 16GM BOTTLE. NS SCH (10:53)
[2020-06-18] MEDS: EZETIMIBE 10 MG TABLET. PO SCH (10:53)
[2020-06-18] MEDS: LOPERAMIDE 2 MG/15 ML ORAL SUSP. PO SCH (10:53)
[2020-06-18 11:00] VITALS: BP 103/56
--- NOTE | 2020-06-18 12:11 | PDOC ---
Infectious Disease Note Vital Signs: Vital Signs Vital Signs Date Time Temp Pulse Resp B/P (MAP) Pulse Ox O2 Delivery O2 Flow Rate FiO2 06/18/20 11:00 97.6 62 18 103/56 (72) 98 Nasal Cannula 2.0 97.6 Medications: Inpatient Meds: Current Medications Medications (Trade) Dose Ordered Sig/Maia Start Time Stop Time Status Last Admin Dose Admin Albuterol Sulfate (Ventolin Neb Soln) 2.5 mg PRN Q4HRS PRN 06/17/20 00:45 Alprazolam (Xanax) 0.25 mg BID 06/16/20 21:00 06/18/20 10:52 0.25 MG Aspirin (Aspirin Chewable) 81 mg DAILY 06/17/20 09:00 06/18/20 10:53 81 MG Budesonide (Pulmicort) 0.5 mg PRN BID PRN 06/17/20 00:45 Carvedilol (Coreg) 6.25 mg BIDWMEALS 06/16/20 18:30 06/18/20 10:52 6.25 MG Cetirizine HCl (ZyrTEC) 10 mg PRN DAILY PRN 06/16/20 18:30 Clopidogrel Bisulfate (Plavix) 75 mg DAILY 06/17/20 09:00 06/18/20 10:52 75 MG Ergocalciferol (Vitamin D2) 50,000 unit WEEKLY 06/23/20 09:00 EZETIMIBE (Zetia) 10 mg DAILY 06/17/20 09:00 06/18/20 10:53 10 MG Ferrous Sulfate (Feosol) 325 mg DAILY 06/17/20 09:00 06/18/20 10:51 325 MG Fish Oil (Fish Oil) 1,000 mg DAILY 06/17/20 09:00 06/18/20 10:52 1,000 MG Fluticasone Propionate (Flonase) 2 spray DAILY 06/17/20 09:00 06/18/20 10:53 2 SPRAY Furosemide (Lasix) 20 mg DAILY 06/17/20 09:00 06/18/20 10:52 20 MG Info (CONTRAST GIVEN -- Rx MONITORING) 1 each PRN DAILY PRN 06/17/20 09:45 06/19/20 09:44 Iohexol (Omnipaque 300 Mg/ml) 60 ml 1X ONCE 06/17/20 10:00 06/17/20 10:01 DC 06/17/20 10:00 60 ML Lactobacillus Rhamnosus (Culturelle) 1 cap DAILY 06/17/20 09:00 06/18/20 10:51 1 CAP Latanoprost (Xalatan) 1 drop QHS 06/16/20 21:00 06/17/20 20:51 1 DROP Levothyroxine Sodium (Synthroid) 75 mcg QSASU@0600 06/19/20 06:00 Loperamide HCl (Immodium Oral Susp) 2 mg DAILY 06/17/20 09:00 06/18/20 10:53 2 MG Magnesium Oxide (Magnesium Oxide) 400 mg QHS 06/16/20 21:00 06/17/20 20:51 400 MG Meclizine HCl (Antivert) 25 mg PRN Q6HRS PRN 06/16/20 18:15 Methadone HCl (Dolophine) 5 mg QID 06/16/20 21:00 06/18/20 10:52 5 MG Non-Formulary Medication (Biotin ) 1 cap DAILY 06/17/20 09:00 UNV Non-Formulary Medication (Flaxseed Oil (Flax Oil)) 1 cap BID 06/16/20 21:00 UNV Ondansetron HCl (Zofran) 4 mg PRN Q8HRS PRN 06/16/20 13:15 06/17/20 13:14 DC Sennosides (Senna) 8.6 mg PRN BID PRN 06/17/20 21:15 06/17/20 21:37 8.6 MG Vitamin B Complex (David B) 1 tab PRN DAILY PRN 06/16/20 18:30 Labs: Lab Laboratory Tests Test 06/18/20 09:05 Amylase Level 99 U/L (25-115) Lipase 700 U/L (73-393) Thyroid Stimulating Hormone (TSH) 5.849 uIU/mL (0.358-3.74) Objective: Assessment: pt seen and examined ID consult dictated Plan: Plan of Care Thank you ARNOLDO RICHMOND MD Jun 18, 2020 12:11
--- NOTE | 2020-06-18 14:29 | CONS ---
DATE OF CONSULTATION: 06/18/2020 REFERRING PHYSICIAN: Iraida Pathak MD REASON FOR CONSULTATION: Possible atypical mycobacterial infection. HISTORY OF PRESENT ILLNESS: An 85-year-old female who was brought to [facility] after she underwent elective CAT scan for chronic cough done [facility]: She was reported to have 30% pneumothorax and abnormal infiltrate. She required 2 liters of O2. The patient has underlying COPD. She also has chronic cough, which has worsened over the last couple of months. She was treated with antibiotic course in [place] by Dr. Shetty, who was her PCP at that time. She has lost about 50 pounds since last 6 months. The patient has a history of colon cancer for which she underwent surgery in the remote past. Denies having any followup colonoscopy done recently as she does not need one by her GI physician. The patient denied any fevers, chills, any history of trauma. Denies any nausea, vomiting, diarrhea, headache, sore throat, difficulty swallowing. Denies any symptoms. Denies worsening shortness of breath. The patient denies any dental pain. COVID was done, which was negative. White count was normal, hemoglobin of 10.9. TSH of 5.849. Lipase of 700. Albumin of 3.2. Blood cultures were done, which are negative. She had a repeat CT scan done here, which showed COPD with reticular nodular densities in the lungs suggesting sequelae of atypical infection such as Mycobacterium avium intracellular with associated mediastinal and right hilar adenopathy. Moderate right pneumothorax is present associated with concave bowing of the right heart border. Repeat chest x-ray today shows moderate right pneumothorax without mediastinal shift. No significant radiographic interval change. ID consult has been requested for further evaluation and treatment. Sputum for AFB has been sent, which is pending at this time. PAST MEDICAL HISTORY: History of COPD, history of colon cancer, ongoing weight loss. SURGERIES: Partial colectomy. ALLERGIES: HYDROCODONE, MORPHINE. SOCIAL HISTORY: Smoked long time back. No alcohol, no illicit drug use. Lives with spouse. No pets. No birds. REVIEW OF SYSTEMS: Negative except for above in HPI. PHYSICAL EXAMINATION: VITAL SIGNS: Temperature 97.6, pulse 62, respiratory rate 18, blood pressure 103/56, oxygen saturation 98% on 2 liters by nasal cannula. GENERAL: Alert, oriented x 3 female, sitting upright in bed, eating lunch, in no acute distress, appears thin, cachectic. HEENT: Normocephalic, atraumatic, anicteric. Dentition fair. No thrush. NECK: Supple, no JVD. LUNGS: Decreased breath sound bilaterally. No wheezing. HEART: S1, S2. ABDOMEN: Soft, nontender, nondistended. EXTREMITIES: No edema, no cyanosis. DERMATOLOGIC: Warm, dry. No generalized rash. NEUROLOGIC: Alert, oriented x 3, grossly nonfocal. PSYCHIATRIC: Calm and cooperative, pleasant. LABORATORY DATA: WBC 9.3, hemoglobin 10.9, hematocrit 33.6, platelets 177. Sodium 135, potassium 4.1, chloride 96, bicarbonate 34, BUN 19, creatinine 0.9, glucose 80, calcium 8.9, total bilirubin 0.7, AST 38, ALT 40, alkaline phosphatase 76. Troponin normal. Albumin 3.2. Amylase 99, lipase 700. TSH 5.849. COVID-19 negative. Micro: UA negative. DIAGNOSTICS: CT chest as above. Chest x-ray as above. IMPRESSION: 1. Chronic cough. 2. Spontaneous pneumothorax. Stable on O2 by [place] 3. Chronic obstructive pulmonary disease, severe. 4. Weight loss. 5. Bronchiectasis with bilateral reticulonodular infiltrates on CT lung, suspicion for atypical Mycobacterium avium infection. Malignancy is also into differential diagnosis. 6. History of colon cancer, status post partial colectomy. 7. Anemia. RECOMMENDATIONS: 1. Follow up sputum AFB. 2. We will send two more specimens. 3. Follow up cultures and monitor labs 4. Maintain aspiration precaution. 5. Continue supportive care. Discussed with Dr. Calderón. Discussed with nursing staff. Thank you for consulting Infectious Disease to participate in this patient's care. If you have any questions, do not hesitate to contact me. ARNOLDO RICHMOND MD DR: GUADALUPE/connor JOB#: [id number] / [id number] RAFAT
[2020-06-18 15:00] VITALS: BP 102/55
--- NOTE | 2020-06-18 17:15 | NUR ---
SW following. Spoke with RN and reviewed chart. Pt not ready for discharge. Discharge plan remains home with spouse and [facility] at discharge. SW completed Patient Choice of Vendor form today as pt requesting HH at discharge. Pt has home 02. Pt not ready for discharge. SW to follow.
--- NOTE | 2020-06-18 18:21 | NUR ---
Pt transferred to room 440 per wheelchair. Report called to Carmencita SCHNEIDER.
[2020-06-18 19:00] VITALS: BP 106/44
[2020-06-18] MEDS: LATANOPROST 0.005% OPHTH SOLUTION 2.5ML BOTTLE. OU SCH (21:00)
[2020-06-18] MEDS: MAGNESIUM OXIDE 400 MG TABLET PO SCH (21:25)
[2020-06-18 23:00] VITALS: BP 115/36
[2020-06-19 00:08] LABS: HEMOGLOBIN A1C 5.5 % (4.8-5.6)
[2020-06-19 03:00] VITALS: BP 124/44
--- NOTE | 2020-06-19 05:51 | PDOC ---
PULMONARY PROGRESS NOTES DATE: 06/19/20 TIME: 05:48 Subjective feels better, on 02 2lpm no soa, has cough, no cp, not on home 02 Vitals Vital Signs Date Time Temp Pulse Resp B/P (MAP) Pulse Ox O2 Delivery O2 Flow Rate FiO2 06/19/20 03:00 98.6 65 18 124/44 (70) 91 Room Air 98.6 06/18/20 23:00 2.0 General: Alert, No acute distress Lungs: Other (decrease bs) Cardiovascular: S1 Abdomen: Soft Neuro Exam: Alert Extremities: No Edema Skin: Warm Labs Laboratory Tests Test 06/18/20 09:05 Hemoglobin A1c 5.5 % (4.8-5.6) Amylase Level 99 U/L (25-115) Lipase 700 U/L (73-393) Thyroid Stimulating Hormone (TSH) 5.849 uIU/mL (0.358-3.74) Laboratory Tests Test 06/18/20 09:05 Hemoglobin A1c 5.5 % (4.8-5.6) Amylase Level 99 U/L (25-115) Lipase 700 U/L (73-393) Thyroid Stimulating Hormone (TSH) 5.849 uIU/mL (0.358-3.74) Medications Active Scripts Medications Dose Route/Sig Max Daily Dose Days Date Category Loperamide HCl 1 Mg/7.5 Ml Liquid 2 Mg PO DAILY 06/16/20 Reported Iron (Ferrous Sulfate) 325 Mg Tablet 1 Tab PO DAILY 30 06/16/20 Reported Flax Oil (Flaxseed Oil) 1,000 Mg Capsule 1 Cap PO BID 30 06/16/20 Reported Aspirin 81 Mg Tab.chew 1 Tab PO DAILY 06/16/20 Reported Magnesium Citrate 100 Mg Tablet 1 Tab PO QHS 30 06/16/20 Reported Probiotic & Acidophilus Cap (Lactobac Cmb #3/Fos/Pantethine) 1 Each Capsule 1 Cap PO DAILY 30 06/16/20 Reported Brain Davit-Wze-Nc Q10 Tablet (Vit B Cmplx & C#11/Ca/Dha/Q10) 1 Each Tablet 1 Each PO PRN DAILY PRN 06/16/20 Reported Biotin 1 Mg Capsule 1 Cap PO DAILY 30 06/16/20 Reported D3-50 (Cholecalciferol (Vitamin D3)) 50,000 Unit Capsule 1 Cap PO WEEKLY 28 06/16/20 Reported Megared [place]-3 Krill Oil Sfgl (Krill/Om-3/Dha/Epa/Phospho/Ast) 1 Each Capsule 1 Cap PO DAILY 30 06/16/20 Reported Loratadine 10 Mg Tab.rapdis 10 Mg PO PRN DAILY PRN 06/16/20 Reported Flonase Allergy Relief (Fluticasone Propionate) 9.9 Ml [place].susp 2 Sprays NS DAILY 06/16/20 Reported Ventolin Hfa Inhaler (Albuterol Sulfate) 18 Gm Hfa.aer.ad 2 Puff INH Q4HRS 06/16/20 Reported Flovent 110MCG Hfa (Fluticasone Propionate) 12 Gm Aer.w.adap 2 Puff IH BID 06/16/20 Reported Travatan Z (Travoprost) 5 Ml Drops 1 Drop EACHEYE QHS 06/16/20 Reported Alprazolam 0.25 Mg Tablet 1 Tab PO BID 06/16/20 Reported Methadone Hcl 5 Mg Tablet 1 Tab PO QID 06/16/20 Reported Motion-Time (Meclizine HCl) 25 Mg Tab.chew 25 Mg PO PRN PRN 06/16/20 Reported Clopidogrel (Clopidogrel Bisulfate) 75 Mg Tablet 1 Tab PO DAILY 06/16/20 Reported Furosemide 20 Mg Tablet 1 Tab PO DAILY 06/16/20 Reported Carvedilol 25 Mg Tablet 6.25 Mg PO BIDWMEALS 06/16/20 Reported Zetia (Ezetimibe) 10 Mg Tablet 1 Tab PO DAILY 30 06/16/20 Reported Levo-T (Levothyroxine Sodium) 75 Mcg Tablet 1 Tab PO QSASU 30 06/16/20 Reported Levo-T (Levothyroxine Sodium) 50 Mcg Tablet 1 Tab PO DAILY 30 06/16/[address] chest COPD with reticulonodular densities in the lungs, suggesting sequelae of atypical infection (such as mycobacterium avium intracellulare) with associated mediastinal and right hilar adenopathy. A moderate right pneumothorax is present, associated with concave bowing of the right heart border. Discussed with Dr. Wilde by telephone at 5:30 pm on 06/17/20 Electronically signed by: King Mendoza MD (06/17/2020 5:32 PM) [id number] Impression . 1. Acute hypoxic respiratory failure secondary to right-sided spontaneous pneumothorax. She is comfortable on 2 liters nasal cannula. 2. Chronic cough along with a 50-pound weight loss since the beginning of the year and bilateral reticulonodular infiltrates on the CT chest and also some bronchiectasis. 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 No obvious Malignancy seen on CT chest 3. History of colon cancer, per patient it was pre cancerous, had surgery Plan . 1. We will continue with present oxygen. 2. Follow up chest x-ray 06/18 is stable. there is no progression of pneumothorax. cxr looks better 3. CT chest with contrast reviewed. Highly suspected for MAC 4. We will need sputum for AFB to rule out Mycobacterium avium complex infection. results P, 2 sputum sent, first afb stain neg 5. Bronchodilators p.r.n. 6. follow ID rec. 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
[2020-06-19] MEDS: LEVOTHYROXINE 75 MCG TABLET PO SCH (06:07)
[2020-06-19 07:00] VITALS: BP 104/43
[2020-06-19] MEDS: CARVEDILOL 6.25 MG TABLET. PO SCH ×2 (08:53→17:00)
[2020-06-19] MEDS: EZETIMIBE 10 MG TABLET. PO SCH (08:53)
[2020-06-19] MEDS: ALPRAZolam 0.25 MG TABLET PO SCH ×2 (08:54→21:17)
[2020-06-19] MEDS: FUROSEMIDE 20 MG TABLET PO SCH (08:54)
[2020-06-19] MEDS: LACTOBACILLUS RHAMNOSUS GG 1 CAPSULE. PO SCH (08:54)
[2020-06-19] MEDS: OMEGA-3 FATTY ACIDS/FISH OIL 1,000 MG CAPSULE. PO SCH (08:54)
[2020-06-19] MEDS: FLUTICASONE 50MCG/NASAL SPRAY 16GM BOTTLE. NS SCH (08:55)
[2020-06-19] MEDS: CLOPIDOGREL BISULFATE 75 MG TABLET PO SCH (08:55)
[2020-06-19] MEDS: METHADONE 5 MG TABLET. PO SCH ×4 (08:55→21:17)
[2020-06-19] MEDS: ASPIRIN CHEWABLE 81 MG TABLET. PO SCH (08:55)
[2020-06-19] MEDS: FERROUS SULFATE 325 MG TABLET. PO SCH (08:56)
[2020-06-19] MEDS: LOPERAMIDE 2 MG/15 ML ORAL SUSP. PO SCH (09:00)
--- NOTE | 2020-06-19 10:22 | PDOC ---
IM PROGRESS NOTES- Subjective Subjective Has cough and congestion Objective Vitals/I&O Vital Signs Date Time Temp Pulse Resp B/P (MAP) Pulse Ox O2 Delivery O2 Flow Rate FiO2 06/19/20 08:55 20 Nasal Cannula 2.0 06/19/20 08:53 61 104/43 06/19/20 07:00 98.2 98 98.2 I & O 06/18/20 06/18/20 06/19/20 15:00 23:00 07:00 Intake Total 760 ml 600 ml 100 ml Balance 760 ml 600 ml 100 ml Physical Exam Physical Exam General appearance -alert, chronically ill-appearing in mild distress Mental Status - alert, oriented to person, place, and time, affect appropriate to mood Head - normal Chest -decreased breath sounds at bases, occasional coarse breath sounds Heart - S1 and S2 normal Abdomen - soft, non tender Neurological - alert and oriented Extremities - no pedal edema Skin - warm and dry Meds Current Medications Medications (Trade) Dose Ordered Sig/Maia Route PRN Reason Start Time Stop Time Status Last Admin Dose Admin Levothyroxine Sodium (Synthroid) 75 mcg QSASU@0600 PO 06/19/20 06:00 06/19/20 06:07 Assessment Assessment Problems Medical Problems: (1) Pneumothorax Status: Acute (2) Suspected 2019 novel coronavirus infection Status: Acute FINAL IMPRESSION: 1. Spontaneous Rt pneumothorax. 2. 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 3. Chronic obstructive pulmonary disease. 4. Significant weight loss. 5. Coronary artery disease. 6. Hypothyroidism. 7. Hypertension. 8. Hyperlipidemia. 9. History of colon cancer in 2007, partial colon resection. PLAN: COVID -19 neg sputum c/s pending CT chest -possible atypical mycobacterium. spoke with Dr Calderón. ID consult today PT/OT evaluation and treatment More cultures have been ordered by infectious disease specialist. One AFB culture stain is negative Plan Plan For more details regarding further plans, please refer to the orders. Justicifation of Admission Dx: Justifications for Admission: Justification of Admission Dx: Yes Nutrition Consultation Dietary Evaluation: Recommendations by RD: Dietary education by RD, Increase Calorie Intake, Protein supplementation Comments: ensure tid Expected Outcomes/Goals: to meet >75% est nutr needs Interpretation of weight loss: >10% in 6 months Malnutrition Findings: Body Fat Depletion (Non Severe: Mod to Severe Weight Status: Underweight MONICA CASTRO MD Jun 19, 2020 10:22
[2020-06-19] MEDS: IPRATRPIUM/ALBUTEROL 0.5/2.5MG 3 ML NEBU. NEB SCH ×3 (10:49→19:31)
[2020-06-19] MEDS: BUDESONIDE 0.5 MG/2 ML NEBU. NEB SCH ×2 (10:49→19:31)
[2020-06-19 11:00] VITALS: BP 113/39
--- NOTE | 2020-06-19 11:10 | RAD ---
Examination: PORTABLE CHEST 1V History: Reason: PTX / Spl. Instructions: / History: Comparison/Correlation: 06/17/2020 CT chest with contrast, 06/18/2020 Portable Chest X-ray Exam Findings: Portable upright frontal view chest was obtained. Heart size normal. Interstitial thickening lung quezada diffusely seen. Known right-sided pneumothorax is again evident with no significant change concerning differences in positioning. Minimal basilar aspect of the pneumothorax is more clearly evident on the current exam compared to the prior exam. Impression: No significant change in right-sided pneumothorax. Electronically signed by: Pete Mckeon MD (06/19/2020 11:07 AM) [id number]
--- NOTE | 2020-06-19 13:21 | PDOC ---
Infectious Disease Note Subjective Subjective Denies increase SOA or cough 1L O2 Eating 100% meals + BM Denies F/C/N/V ROS ROS as mentioned above Vital Sign Vital Signs Vital Signs Date Time Temp Pulse Resp B/P (MAP) Pulse Ox O2 Delivery O2 Flow Rate FiO2 06/19/20 11:00 97.8 62 18 113/39 (63) 100 Room Air 97.8 06/19/20 10:50 2.0 Physical Exam PHYSICAL EXAM GENERAL: Sitting on the side of the bed, alert and eating. Thin HEENT: Oral cavity, clear. Dentition fair. No thrush. NECK: Supple, no JVD. LUNGS: Decreased breath sound bilaterally. No wheezing. HEART: S1, S2. ABDOMEN: Soft, nontender, nondistended. EXTREMITIES: No edema, no cyanosis. DERMATOLOGIC: Warm, dry. No generalized rash. NEUROLOGIC: Alert, oriented x 3, grossly nonfocal. PSYCHIATRIC: Calm and cooperative, pleasant. PIV Labs Micro Microbiology 06/17. AFB SPECIMEN PROCESSING Final Concentration AFB CULTURE FINAL PENDING AFB CULTURE GRAM STAIN Final Negative 06/16/20 Blood Culture - Preliminary, Resulted NO GROWTH AFTER 3 DAYS Objective Assessment Chronic cough. Spontaneous pneumothorax. Stable on O2 by [place] Chronic obstructive pulmonary disease, severe. Weight loss. Bronchiectasis with bilateral reticulonodular infiltrates on CT lung, suspicion for atypical Mycobacterium avium infection. Malignancy is also into differential diagnosis. History of colon cancer, status post partial colectomy. Anemia. Plan Plan of Care 1st AFB smear negative Sputum AFB specimen to sample sent, results pending at this Follow up cultures and monitor labs Maintain aspiration precaution. Continue supportive care. Attending Co-Sign Attending Co-Sign Attending Co-Sign The patient was seen and examined at the bedside. The chart was reviewed. The case was discussed. Agree with the plan of care. SOPHIE SANTOS APRN Jun 19, 2020 13:21 ARNOLDO RICHMOND MD Jun 19, 2020 13:22
[2020-06-19 15:00] VITALS: BP 93/44
[2020-06-19 19:00] VITALS: BP 118/42
[2020-06-19] MEDS: LATANOPROST 0.005% OPHTH SOLUTION 2.5ML BOTTLE. OU SCH (21:16)
[2020-06-19] MEDS: MAGNESIUM OXIDE 400 MG TABLET PO SCH (21:17)
[2020-06-19 23:00] VITALS: BP 144/35
[2020-06-20 02:49] VITALS: BP 93/36
[2020-06-20] MEDS: LEVOTHYROXINE 75 MCG TABLET PO SCH (05:57)
[2020-06-20 07:00] VITALS: BP 120/56
[2020-06-20] MEDS: IPRATRPIUM/ALBUTEROL 0.5/2.5MG 3 ML NEBU. NEB SCH ×4 (07:33→19:43)
[2020-06-20] MEDS: BUDESONIDE 0.5 MG/2 ML NEBU. NEB SCH ×2 (07:33→19:43)
[2020-06-20] MEDS: LOPERAMIDE 2 MG/15 ML ORAL SUSP. PO SCH (09:00)
--- NOTE | 2020-06-20 09:23 | PDOC ---
PULMONARY PROGRESS NOTES DATE: 06/20/20 TIME: 09:22 Subjective feels better, on ra no soa, has cough, no cp, not on home 02 Vitals Vital Signs Date Time Temp Pulse Resp B/P (MAP) Pulse Ox O2 Delivery O2 Flow Rate FiO2 06/20/20 07:34 94 Room Air 06/20/20 07:00 98.6 77 18 120/56 (77) 98.6 06/19/20 23:00 1.0 General: Alert, No acute distress Lungs: Other (decrease bs) Cardiovascular: S1 Abdomen: Soft Neuro Exam: Alert Extremities: No Edema Skin: Warm Medications Active Scripts Medications Dose Route/Sig Max Daily Dose Days Date Category Loperamide HCl 1 Mg/7.5 Ml Liquid 2 Mg PO DAILY 06/16/20 Reported Iron (Ferrous Sulfate) 325 Mg Tablet 1 Tab PO DAILY 30 06/16/20 Reported Flax Oil (Flaxseed Oil) 1,000 Mg Capsule 1 Cap PO BID 30 06/16/20 Reported Aspirin 81 Mg Tab.chew 1 Tab PO DAILY 06/16/20 Reported Magnesium Citrate 100 Mg Tablet 1 Tab PO QHS 30 06/16/20 Reported Probiotic & Acidophilus Cap (Lactobac Cmb #3/Fos/Pantethine) 1 Each Capsule 1 Cap PO DAILY 30 06/16/20 Reported Brain Mrhpn-Tfx-Ic Q10 Tablet (Vit B Cmplx & C#11/Ca/Dha/Q10) 1 Each Tablet 1 Each PO PRN DAILY PRN 06/16/20 Reported Biotin 1 Mg Capsule 1 Cap PO DAILY 30 06/16/20 Reported D3-50 (Cholecalciferol (Vitamin D3)) 50,000 Unit Capsule 1 Cap PO WEEKLY 28 06/16/20 Reported Megared [place]-3 Krill Oil Sfgl (Krill/Om-3/Dha/Epa/Phospho/Ast) 1 Each Capsule 1 Cap PO DAILY 30 06/16/20 Reported Loratadine 10 Mg Tab.rapdis 10 Mg PO PRN DAILY PRN 06/16/20 Reported Flonase Allergy Relief (Fluticasone Propionate) 9.9 Ml [place].susp 2 Sprays NS DAILY 06/16/20 Reported Ventolin Hfa Inhaler (Albuterol Sulfate) 18 Gm Hfa.aer.ad 2 Puff INH Q4HRS 06/16/20 Reported Flovent 110MCG Hfa (Fluticasone Propionate) 12 Gm Aer.w.adap 2 Puff IH BID 06/16/20 Reported Travatan Z (Travoprost) 5 Ml Drops 1 Drop EACHEYE QHS 06/16/20 Reported Alprazolam 0.25 Mg Tablet 1 Tab PO BID 06/16/20 Reported Methadone Hcl 5 Mg Tablet 1 Tab PO QID 06/16/20 Reported Motion-Time (Meclizine HCl) 25 Mg Tab.chew 25 Mg PO PRN PRN 06/16/20 Reported Clopidogrel (Clopidogrel Bisulfate) 75 Mg Tablet 1 Tab PO DAILY 06/16/20 Reported Furosemide 20 Mg Tablet 1 Tab PO DAILY 06/16/20 Reported Carvedilol 25 Mg Tablet 6.25 Mg PO BIDWMEALS 06/16/20 Reported Zetia (Ezetimibe) 10 Mg Tablet 1 Tab PO DAILY 30 06/16/20 Reported Levo-T (Levothyroxine Sodium) 75 Mcg Tablet 1 Tab PO QSASU 30 06/16/20 Reported Levo-T (Levothyroxine Sodium) 50 Mcg Tablet 1 Tab PO DAILY 30 06/16/20 Reported Comments cxr 06/20, reviewed No significant change in small right-sided pneumothorax. No significant change in pulmonary aeration. ct chest COPD with reticulonodular densities in the lungs, suggesting sequelae of atypical infection (such as mycobacterium avium intracellulare) with associated mediastinal and right hilar adenopathy. A moderate right pneumothorax is present, associated with concave bowing of the right heart border. Impression . 1. Acute hypoxic respiratory failure secondary to right-sided spontaneous pneumothorax. She is comfortable on 2 liters nasal cannula. 2. Chronic cough along with a 50-pound weight loss since the beginning of the year and bilateral reticulonodular infiltrates on the CT chest and also some bronchiectasis. 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 No obvious Malignancy seen on CT chest 3. History of colon cancer, per patient it was pre cancerous, had surgery Plan . 1. will start oxygen 2 lpm, would help w ptx reabsorption. 2. Follow up chest x-ray 06/20 is stable. there is no progression of pneumothorax. cxr pa and lat in am 3. CT chest with contrast reviewed. Highly suspected for MAC 4. We will need sputum for AFB to rule out Mycobacterium avium complex infection. results P, 3 sputum sent, 2 afb stain neg 5. Bronchodilators p.r.n. 6. follow ID rec. 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
--- NOTE | 2020-06-20 09:31 | RAD ---
Examination: PORTABLE CHEST 1V History: Reason: PTX / Spl. Instructions: / History: Comparison/Correlation: 06/19/2020 Findings: Portable upright chest x-ray was performed. Heart size is normal. Diffuse interstitial thickening lung quezada noted. No focal consolidation. Calcified granulomas are present. Focal interstitial infiltrate in the lateral right mid thoracic level superior to the minor fissure is present. Small right-sided pneumothorax with an apical and basilar components again seen. Impression: No significant change in small right-sided pneumothorax. No significant change in pulmonary aeration. Electronically signed by: Pete Mckeon MD (06/20/2020 9:29 AM) [id number]
--- NOTE | 2020-06-20 09:42 | PDOC ---
IM PROGRESS NOTES- Subjective Subjective Has cough and congestion. Restarted back on oxygen by nasal cannula 2 L/min this morning Objective Vitals/I&O Vital Signs Date Time Temp Pulse Resp B/P (MAP) Pulse Ox O2 Delivery O2 Flow Rate FiO2 06/20/20 07:34 94 Room Air 06/20/20 07:00 98.6 77 18 120/56 (77) 98.6 06/19/20 23:00 1.0 I & O 06/19/20 06/19/20 06/20/20 15:00 23:00 07:00 Intake Total 400 ml Balance 400 ml Physical Exam Physical Exam General appearance -alert, chronically ill-appearing in mild distress Mental Status - alert, oriented to person, place, and time, affect appropriate to mood Head - normal Chest -decreased breath sounds at bases, occasional coarse breath sounds Heart - S1 and S2 normal Abdomen - soft, non tender Neurological - alert and oriented Extremities - no pedal edema Skin - warm and dry Meds Current Medications Medications (Trade) Dose Ordered Sig/Maia Route PRN Reason Start Time Stop Time Status Last Admin Dose Admin Budesonide (Pulmicort) 0.5 mg RTBID [facility] 06/19/20 10:00 06/20/20 07:33 Albuterol/ Ipratropium (Duoneb) 3 ml RTQID [facility] 06/19/20 12:00 06/20/20 07:33 Assessment Assessment Problems Medical Problems: (1) Pneumothorax Status: Acute (2) Suspected 2019 novel coronavirus infection Status: Acute FINAL IMPRESSION: 1. Spontaneous Rt pneumothorax. 2. 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 3. Chronic obstructive pulmonary disease. 4. Significant weight loss. 5. Coronary artery disease. 6. Hypothyroidism. 7. Hypertension. 8. Hyperlipidemia. 9. History of colon cancer in 2007, partial colon resection. PLAN: COVID -19 neg sputum c/s pending CT chest -possible atypical mycobacterium. spoke with Dr Calderón. ID consult today PT/OT evaluation and treatment More cultures have been ordered by infectious disease specialist. One AFB stain is negative Has elevated Lipase. Pneumothorax-restarted oxygen by nasal cannula 2 L/min this morning. Chest x- ray today shows no change in pneumothorax. Plan Plan For more details regarding further plans, please refer to the orders. Justicifation of Admission Dx: Justifications for Admission: Justification of Admission Dx: Yes Nutrition Consultation Dietary Evaluation: Recommendations by RD: Dietary education by RD, Increase Calorie Intake, Protein supplementation Comments: ensure tid Expected Outcomes/Goals: to meet >75% est nutr needs Interpretation of weight loss: >10% in 6 months Malnutrition Findings: Body Fat Depletion (Non Severe: Mod to Severe Weight Status: Underweight MONICA CASTRO MD Jun 20, 2020 09:42
[2020-06-20] MEDS: OMEGA-3 FATTY ACIDS/FISH OIL 1,000 MG CAPSULE. PO SCH (10:24)
[2020-06-20] MEDS: LACTOBACILLUS RHAMNOSUS GG 1 CAPSULE. PO SCH (10:24)
[2020-06-20] MEDS: CLOPIDOGREL BISULFATE 75 MG TABLET PO SCH (10:24)
[2020-06-20] MEDS: FERROUS SULFATE 325 MG TABLET. PO SCH (10:24)
[2020-06-20] MEDS: FUROSEMIDE 20 MG TABLET PO SCH (10:25)
[2020-06-20] MEDS: CARVEDILOL 6.25 MG TABLET. PO SCH ×2 (10:25→17:00)
[2020-06-20] MEDS: ASPIRIN CHEWABLE 81 MG TABLET. PO SCH (10:25)
[2020-06-20] MEDS: METHADONE 5 MG TABLET. PO SCH ×3 (10:26→19:34)
[2020-06-20] MEDS: FLUTICASONE 50MCG/NASAL SPRAY 16GM BOTTLE. NS SCH (10:26)
[2020-06-20] MEDS: EZETIMIBE 10 MG TABLET. PO SCH (10:26)
[2020-06-20] MEDS: ALPRAZolam 0.25 MG TABLET PO SCH ×2 (10:26→21:55)
[2020-06-20 11:00] VITALS: BP 136/47
--- NOTE | 2020-06-20 11:10 | PDOC ---
Infectious Disease Note Subjective Subjective c/o her bottom hurting from sitting all the time. Got up and stretched some Requesting a cup of coffee Denies increase SOA or cough On 2L O2 Denies F/C/N/V ROS ROS as mentioned above Vital Sign Vital Signs Vital Signs Date Time Temp Pulse Resp B/P (MAP) Pulse Ox O2 Delivery O2 Flow Rate FiO2 06/20/20 10:26 20 Nasal Cannula 2.0 06/20/20 10:25 77 120/56 06/20/20 07:34 94 06/20/20 07:00 98.6 98.6 Physical Exam PHYSICAL EXAM GENERAL: Propped up in bed, alert in NAD, thin HEENT: Oral cavity, clear. Dentition fair. No thrush. NECK: Supple, no JVD. LUNGS: Decreased breath sound bilaterally. No wheezing. HEART: S1, S2. ABDOMEN: Soft, nontender, nondistended. EXTREMITIES: No edema, no cyanosis. DERMATOLOGIC: Warm, dry. No generalized rash. NEUROLOGIC: Alert, oriented x 3, grossly nonfocal. PSYCHIATRIC: Calm and cooperative, pleasant. PIV Labs Lab CXR, 06/20. Impression: No significant change in small right-sided pneumothorax. No significant change in pulmonary aeration. Micro 06/17. AFB SPECIMEN PROCESSING Final Concentration AFB CULTURE FINAL PENDING AFB CULTURE GRAM STAIN Final Negative 06/18. AFB CULTURE GRAM STAIN Final Negative 06/16/20 Blood Culture - Preliminary, Resulted NO GROWTH AFTER 4 DAYS Objective Assessment Chronic cough. Spontaneous pneumothorax. Stable on O2 by [place] Chronic obstructive pulmonary disease, severe. Weight loss. Bronchiectasis with bilateral reticulonodular infiltrates on CT lung, suspicion for atypical Mycobacterium avium infection. Malignancy is also into differential diagnosis. History of colon cancer, status post partial colectomy. Anemia. Plan Plan of Care Continue to observe off antibiotics 1st and 2nd AFB smear negative Awaiting a 3rd AFB Follow up cultures and monitor labs Maintain aspiration precaution. Continue supportive care. PT and OT D/w nursing Patient seen and examined. Labs, micro, and chart reviewed. I agree with the above DIMENSIONAL INTEGRATION ENGINEER. SOPHIE SANTOS APRN Jun 20, 2020 11:10 ARNOLDO RICHMOND MD Jun 20, 2020 15:02
[2020-06-20 15:00] VITALS: BP 112/32
[2020-06-20 19:00] VITALS: BP 112/41
[2020-06-20] MEDS: MAGNESIUM OXIDE 400 MG TABLET PO SCH (21:54)
[2020-06-20] MEDS: LATANOPROST 0.005% OPHTH SOLUTION 2.5ML BOTTLE. OU SCH (21:55)
[2020-06-20 22:59] VITALS: BP 138/42
[2020-06-21] MEDS: METHADONE 5 MG TABLET. PO SCH ×3 (00:49→13:12)
[2020-06-21 03:12] VITALS: BP 106/39
[2020-06-21] MEDS: LEVOTHYROXINE 50 MCG TABLET PO SCH (06:01)
[2020-06-21 07:00] VITALS: BP 105/45
[2020-06-21] MEDS: IPRATRPIUM/ALBUTEROL 0.5/2.5MG 3 ML NEBU. NEB SCH ×2 (07:07→11:25)
[2020-06-21] MEDS: BUDESONIDE 0.5 MG/2 ML NEBU. NEB SCH (07:07)
[2020-06-21] MEDS: CARVEDILOL 6.25 MG TABLET. PO SCH (08:00)
--- NOTE | 2020-06-21 08:47 | PDOC ---
PROGRESS NOTES Date of Service: DATE: 06/21/20 TIME: 08:45 Subjective Subjective feel scarlett , want to go home Objective Objective Vital Signs Date Time Temp Pulse Resp B/P (MAP) Pulse Ox O2 Delivery O2 Flow Rate FiO2 06/21/20 07:08 97 Nasal Cannula 2.0 06/21/20 03:12 97.5 67 20 106/39 (61) 97.5 Intake and Output 06/21/20 07:00 Intake Total 700 ml Output Total 200 ml Balance 500 ml Intake Oral 700 ml Output Urine Total 200 ml # Voids 2 Physical Exam Abdomen: Normal bowel sounds, Soft Heart: Regular rate, Normal S1 Extremities: No clubbing General: Alert, Other (emaciated) HEENT: Atraumatic, Other (few crackes at bases) Neuro: Normal speech Psych/Mental Status: Mental status NL Skin: No breakdown Diagnosis Problem List Problems Medical Problems: (1) Pneumothorax Status: Acute (2) Suspected 2019 novel coronavirus infection Status: Acute Assessment Assessment Problems Medical Problems: (1) Pneumothorax Status: Acute (2) Suspected 2019 novel coronavirus infection Status: Acute FINAL IMPRESSION: 1. Spontaneous Rt pneumothorax. 2. 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 3. Chronic obstructive pulmonary disease. 4. Significant weight loss. 5. Coronary artery disease. 6. Hypothyroidism. 7. Hypertension. 8. Hyperlipidemia. 9. History of colon cancer in 2007, partial colon resection. PLAN: AFB 2 specimens-neg suspect Atypical mycobacterium can d/c home and f/u out pt. home health may need oxygen for home use. COVID -19 neg sputum c/s pending CT chest -possible atypical mycobacterium. spoke with Dr Calderón. ID consult today PT/OT evaluation and treatment More cultures have been ordered by infectious disease specialist. One AFB stain is negative Has elevated Lipase. Pneumothorax-restarted oxygen by nasal cannula 2 L/min this morning. Chest x- ray today shows no change in pneumothorax. Plan Plan of Care Problems Medical Problems: (1) Pneumothorax Status: Acute (2) Suspected 2019 novel coronavirus infection Status: Acute Comment Review of Relevant I have reviewed the following items lizette (where applicable) has been applied. Labs Microbiology 06/18/20 AFB Specimen Processing Tissue - Final, Resulted 06/18/20 Acid Fast Bacilli Culture, Resulted Pending 06/18/20 Gram Stain - Final, Resulted 06/16/20 Blood Culture - Preliminary, Resulted NO GROWTH AFTER 4 DAYS Medications Current Medications Ergocalciferol (Vitamin D2) 50,000 unit WEEKLY PO ; Start 06/23/20 at 09:00 Vitals/I & O Vital Sign - Last 24 Hours 06/20/20 06/20/20 06/20/20 06/20/20 10:25 10:26 11:00 11:22 Temp 97.6 97.6 Pulse 77 75 Resp 20 18 B/P (MAP) 120/56 136/47 (76) Pulse Ox 99 97 O2 Delivery Nasal Cannula Room Air Nasal Cannula O2 Flow Rate 2.0 2.0 06/20/20 06/20/20 06/20/20 06/20/20 11:26 15:00 15:52 16:52 Temp 98.3 98.3 Pulse 70 Resp 20 18 20 20 B/P (MAP) 112/32 (58) Pulse Ox 99 O2 Delivery Nasal Cannula Room Air Nasal Cannula Nasal Cannula O2 Flow Rate 2.0 2.0 2.0 06/20/20 06/20/20 06/20/20 06/20/20 19:00 19:34 19:44 20:00 Temp 98.4 98.4 Pulse 80 Resp 16 20 B/P (MAP) 112/41 (64) Pulse Ox 99 97 O2 Delivery Nasal Cannula Room Air Nasal Cannula Nasal Cannula O2 Flow Rate 2.0 2.0 2.0 2.0 06/20/20 06/20/20 06/21/20 06/21/20 20:34 22:59 00:49 01:59 Temp 98.9 98.9 Pulse 77 Resp 18 B/P (MAP) 138/42 (74) Pulse Ox 100 O2 Delivery Nasal Cannula Nasal Cannula Nasal Cannula Nasal Cannula O2 Flow Rate 2.0 2.0 2.0 2.0 06/21/20 06/21/20 03:12 07:08 Temp 97.5 97.5 Pulse 67 Resp 20 B/P (MAP) 106/39 (61) Pulse Ox 97 97 O2 Delivery Nasal Cannula Nasal Cannula O2 Flow Rate 2.0 2.0 Intake and Output 06/20/20 06/20/20 06/21/20 15:00 23:00 07:00 Intake Total 400 ml 300 ml Output Total 200 ml Balance 200 ml 300 ml Justicifation of Admission Dx: Justifications for Admission: Justification of Admission Dx: Yes Nutrition Consultation Dietary Evaluation: Recommendations by RD: Dietary education by RD, Increase Calorie Intake, Protein supplementation Comments: ensure tid Expected Outcomes/Goals: to meet >75% est nutr needs Interpretation of weight loss: >10% in 6 months Malnutrition Findings: Body Fat Depletion (Non Severe: Mod to Severe Weight Status: Underweight BRII WEBSTER MD Jun 21, 2020 08:47
[2020-06-21] MEDS ORDERED: IPRA3AMP29 NEB (08:50)
[2020-06-21] MEDS ORDERED: BUDE0.5A NEB (08:50)
--- NOTE | 2020-06-21 08:51 | SNU/HH DC ---
DISCHARGE WITH HOME HEALTH DISCHARGE INFORMATION: Discharge Date: Jun 21, 2020 Final Diagnosis: Problems Medical Problems: (1) Pneumothorax Status: Acute (2) Suspected 2019 novel coronavirus infection Status: Acute Condition on Discharge: Stable CODE STATUS: Code Status: Full HOME HEALTH: Face to Face: I certify this patient is under my care and that I, or a nurse practitioner or physician's accounts receivable assistant working with me, had a face to face encounter that meets the physician face to face encounter requirements with this patient on []. Medical Complications: COPD RN For Eval/Treatment: Yes Physical Therapy For: Evalulation/Treatment Occupational Therapy For: Evaluation/Treatment Home Health Aide For: Self-care HOSPITAL ACCOUNT MANAGER For: Community Resources Pt Meets Homebound Status: Poor coordination w/ amb. POST DISCHARGE ORDERS: DIET AFTER DISCHARGE: Low Sodium 2 gm TREATMENT/EQUIPMENT ORDERS: Adaptive Equipment Issued: Platform walker Discharge Respiratory Equipmen: Oxygen, Nebulizer CERTIFICATION STATEMENT: Certification Statement: Certification Statement: Based on the above finding, I certify that this patient is confined to the home and needs intermittent usp care, physical therapy and/or speech therapy, or continues to need occupational therapy.~ This patient is under my care, and I have initiated the establishment of the plan of care.~ This patient will be followed by myself or a community physician who will periodically review the plan of care. Home Meds Reported Medications Loperamide HCl (Loperamide HCl) 1 Mg/7.5 Ml Liquid, 2 MG PO DAILY for unknown, LIQUID 06/16/20 Ferrous Sulfate (IRON) 325 Mg Tablet, 1 TAB PO DAILY for supplement for 30 Days, #30 TAB 0 Refills 06/16/20 Flaxseed Oil (FLAX OIL) 1,000 Mg Capsule, 1 CAP PO BID for Supplement for 30 Days, #60 CAP 0 Refills 06/16/20 Aspirin (ASPIRIN) 81 Mg Tab.chew, 1 TAB PO DAILY for cardiac, #30 TAB 3 Refills 06/16/20 Magnesium Citrate (MAGNESIUM CITRATE) 100 Mg Tablet, 1 TAB PO QHS for supplement for 30 Days, #31 TAB 0 Refills 06/16/20 Lactobac Cmb #3/Fos/Pantethine (PROBIOTIC & ACIDOPHILUS CAP) 1 Each Capsule, 1 CAP PO DAILY for supplement for 30 Days, #30 CAP 0 Refills 06/16/20 Vit B Cmplx & C#11/Ca/Dha/Q10 (BRAIN HPONO-VIC-ML Q10 TABLET) 1 Each Tablet, 1 EACH PO PRN DAILY PRN for supplement, TAB 06/16/20 Biotin (BIOTIN) 1 Mg Capsule, 1 CAP PO DAILY for supplement for 30 Days, #30 CAP 0 Refills 06/16/20 Cholecalciferol (Vitamin D3) (D3-50) 50,000 Unit Capsule, 1 CAP PO WEEKLY for supplemental for 28 Days, #4 CAP 0 Refills 06/16/20 Krill/Om-3/Dha/Epa/Phospho/Ast (Megared [place]-3 Krill Oil Sfgl) 1 Each Capsule, 1 CAP PO DAILY for supplem for 30 Days, #30 CAP 0 Refills 06/16/20 Loratadine (LORATADINE) 10 Mg Tab.rapdis, 10 MG PO PRN DAILY PRN for ALLERGIES, TAB 06/16/20 Fluticasone Propionate (Flonase Allergy Relief) 9.9 Ml [place].susp, 2 SPRAYS NS DAILY for congestion, BOTTLE 06/16/20 Albuterol Sulfate (VENTOLIN HFA INHALER) 18 Gm Hfa.aer.ad, 2 PUFF INH Q4HRS for FOR ASTHMA, INHALER 0 Refills 06/16/20 Fluticasone Propionate (FLOVENT 110MCG HFA) 12 Gm Aer.w.adap, 2 PUFF IH BID for COPD, #1 INHALER 2 Refills 06/16/20 Travoprost (TRAVATAN Z) 5 Ml Drops, 1 DROP EACHEYE QHS for EYE DROPS, #2.5 ML 2 Refills 06/16/20 Alprazolam (ALPRAZOLAM) 0.25 Mg Tablet, 1 TAB PO BID for ANXIETY, #60 TAB 06/16/20 Methadone Hcl (METHADONE HCL) 5 Mg Tablet, 1 TAB PO QID for PAIN, #120 TAB 06/16/20 Meclizine HCl (Motion-Time) 25 Mg Tab.chew, 25 MG PO PRN PRN for motion sickness, TAB.CHEW 06/16/20 Clopidogrel Bisulfate (CLOPIDOGREL) 75 Mg Tablet, 1 TAB PO DAILY for Anticoag, #90 TAB 1 Refill 06/16/20 Furosemide (FUROSEMIDE) 20 Mg Tablet, 1 TAB PO DAILY for CHF, #90 TAB 1 Refill 06/16/20 Carvedilol (CARVEDILOL) 25 Mg Tablet, 6.25 MG PO BIDWMEALS for CARDIAC, TAB 06/16/20 Ezetimibe (ZETIA) 10 Mg Tablet, 1 TAB PO DAILY for HLD for 30 Days, #30 TAB 0 Refills 06/16/20 Levothyroxine Sodium (Levo-T) 75 Mcg Tablet, 1 TAB PO QSASU for hypothyroid for 30 Days, #30 TAB 0 Refills 06/16/20 Levothyroxine Sodium (Levo-T) 50 Mcg Tablet, 1 TAB PO DAILY for Hypothyroid for 30 Days, #30 TAB 0 Refills 06/16/20 BRII WEBSTER MD Jun 21, 2020 08:51
[2020-06-21] MEDS: FLUTICASONE 50MCG/NASAL SPRAY 16GM BOTTLE. NS SCH (09:00)
[2020-06-21] MEDS: LOPERAMIDE 2 MG/15 ML ORAL SUSP. PO SCH (09:00)
[2020-06-21] MEDS: ALPRAZolam 0.25 MG TABLET PO SCH (09:37)
[2020-06-21] MEDS: FERROUS SULFATE 325 MG TABLET. PO SCH (09:37)
[2020-06-21] MEDS: CLOPIDOGREL BISULFATE 75 MG TABLET PO SCH (09:37)
[2020-06-21] MEDS: ASPIRIN CHEWABLE 81 MG TABLET. PO SCH (09:37)
[2020-06-21] MEDS: EZETIMIBE 10 MG TABLET. PO SCH (09:37)
[2020-06-21] MEDS: OMEGA-3 FATTY ACIDS/FISH OIL 1,000 MG CAPSULE. PO SCH (09:38)
[2020-06-21] MEDS: LACTOBACILLUS RHAMNOSUS GG 1 CAPSULE. PO SCH (09:38)
[2020-06-21] MEDS: FUROSEMIDE 20 MG TABLET PO SCH (09:38)
--- NOTE | 2020-06-21 09:57 | PDOC ---
PULMONARY PROGRESS NOTES DATE: 06/21/20 TIME: 09:55 Subjective feels better, on ra no soa, has cough, no cp, not on home 02 Vitals Vital Signs Date Time Temp Pulse Resp B/P (MAP) Pulse Ox O2 Delivery O2 Flow Rate FiO2 06/21/20 09:38 Nasal Cannula 2.0 06/21/20 07:08 97 06/21/20 03:12 97.5 67 20 106/39 (61) 97.5 General: Alert, No acute distress Lungs: Other (decrease bs) Cardiovascular: S1 Abdomen: Soft Neuro Exam: Alert Extremities: No Edema Skin: Warm Medications Active Scripts Medications Dose Route/Sig Max Daily Dose Days Date Category Loperamide HCl 1 Mg/7.5 Ml Liquid 2 Mg PO DAILY 06/16/20 Reported Iron (Ferrous Sulfate) 325 Mg Tablet 1 Tab PO DAILY 30 06/16/20 Reported Flax Oil (Flaxseed Oil) 1,000 Mg Capsule 1 Cap PO BID 30 06/16/20 Reported Aspirin 81 Mg Tab.chew 1 Tab PO DAILY 06/16/20 Reported Magnesium Citrate 100 Mg Tablet 1 Tab PO QHS 30 06/16/20 Reported Probiotic & Acidophilus Cap (Lactobac Cmb #3/Fos/Pantethine) 1 Each Capsule 1 Cap PO DAILY 30 06/16/20 Reported Brain Atxek-Wwm-Cr Q10 Tablet (Vit B Cmplx & C#11/Ca/Dha/Q10) 1 Each Tablet 1 Each PO PRN DAILY PRN 06/16/20 Reported Biotin 1 Mg Capsule 1 Cap PO DAILY 30 06/16/20 Reported D3-50 (Cholecalciferol (Vitamin D3)) 50,000 Unit Capsule 1 Cap PO WEEKLY 28 06/16/20 Reported Megared [place]-3 Krill Oil Sfgl (Krill/Om-3/Dha/Epa/Phospho/Ast) 1 Each Capsule 1 Cap PO DAILY 30 06/16/20 Reported Loratadine 10 Mg Tab.rapdis 10 Mg PO PRN DAILY PRN 06/16/20 Reported Flonase Allergy Relief (Fluticasone Propionate) 9.9 Ml [place].susp 2 Sprays NS DAILY 06/16/20 Reported Ventolin Hfa Inhaler (Albuterol Sulfate) 18 Gm Hfa.aer.ad 2 Puff INH Q4HRS 06/16/20 Reported Flovent 110MCG Hfa (Fluticasone Propionate) 12 Gm Aer.w.adap 2 Puff IH BID 06/16/20 Reported Travatan Z (Travoprost) 5 Ml Drops 1 Drop EACHEYE QHS 06/16/20 Reported Alprazolam 0.25 Mg Tablet 1 Tab PO BID 06/16/20 Reported Methadone Hcl 5 Mg Tablet 1 Tab PO QID 06/16/20 Reported Motion-Time (Meclizine HCl) 25 Mg Tab.chew 25 Mg PO PRN PRN 06/16/20 Reported Clopidogrel (Clopidogrel Bisulfate) 75 Mg Tablet 1 Tab PO DAILY 06/16/20 Reported Furosemide 20 Mg Tablet 1 Tab PO DAILY 06/16/20 Reported Carvedilol 25 Mg Tablet 6.25 Mg PO BIDWMEALS 06/16/20 Reported Zetia (Ezetimibe) 10 Mg Tablet 1 Tab PO DAILY 30 06/16/20 Reported Levo-T (Levothyroxine Sodium) 75 Mcg Tablet 1 Tab PO QSASU 30 06/16/20 Reported Levo-T (Levothyroxine Sodium) 50 Mcg Tablet 1 Tab PO DAILY 30 06/16/20 Reported Comments cxr 06/20, reviewed No significant change in small right-sided pneumothorax. No significant change in pulmonary aeration. ct chest COPD with reticulonodular densities in the lungs, suggesting sequelae of atypical infection (such as mycobacterium avium intracellulare) with associated mediastinal and right hilar adenopathy. A moderate right pneumothorax is present, associated with concave bowing of the right heart border. Impression . 1. Acute hypoxic respiratory failure secondary to right-sided spontaneous pneumothorax. She is comfortable on 2 liters nasal cannula. 2. Chronic cough along with a 50-pound weight loss since the beginning of the year and bilateral reticulonodular infiltrates on the CT chest and also some bronchiectasis. 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 No obvious Malignancy seen on CT chest 3. History of colon cancer, per patient it was pre cancerous, had surgery Plan . 1. will start oxygen 2 lpm, would help w ptx reabsorption. 2. Follow up chest x-ray 06/20 is stable. there is no progression of pneumothorax. cxr pa and lat in am 3. CT chest with contrast reviewed. Highly suspected for MAC 4. sputum for AFB x 2 neg so far.. await cultures. 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 5. Bronchodilators p.r.n. 6. follow ID rec. If MAC is confirmed, will re assess her tolerability for plumber assistant Rx with 3 drugs 7. d/w D Agueda. ok with dc home will f/u in 4 -6 weeks in office discussed w rn, pt CHANDA SHOEMAKER MD Jun 21, 2020 09:57
--- NOTE | 2020-06-21 09:59 | NUR ---
ANN following. Discussed with RN, pt from home, wants [facility] at discharge. 6 minute walk being ordered prior to discharge. ANN will continue to follow. Addendum: 06/21/20 at 1239 by MIRELLA JUAREZ 6 minute walk completed, pt requiring oxygen. ANN met with pt, pt does not have a preference of provider. ANN had [facility] tank in office, pt agreeable as her daughter is picking her up at 1330. ANN faxed clinicals to [facility], will provide tank to pt once accepted. RN notified.
[2020-06-21 11:00] VITALS: BP 100/48
--- NOTE | 2020-06-21 13:17 | PDOC ---
Infectious Disease Note Vital Sign Vital Signs Vital Signs Date Time Temp Pulse Resp B/P (MAP) Pulse Ox O2 Delivery O2 Flow Rate FiO2 06/21/20 13:12 Nasal Cannula 2.0 06/21/20 11:26 97 06/21/20 08:00 71 105/45 06/21/20 07:00 97.9 18 97.9 Physical Exam PHYSICAL EXAM Labs Micro Microbiology 06/18/20 AFB Specimen Processing Tissue - Final, Resulted 06/18/20 Acid Fast Bacilli Culture, Resulted Pending 06/18/20 Gram Stain - Final, Resulted 06/16/20 Blood Culture - Final, Complete NO GROWTH AFTER 5 DAYS Objective Assessment Chronic cough. Spontaneous pneumothorax. Stable on O2 by [place] Chronic obstructive pulmonary disease, severe. Weight loss. Bronchiectasis with bilateral reticulonodular infiltrates on CT lung, suspicion for atypical Mycobacterium avium infection. Malignancy is also into differential diagnosis. History of colon cancer, status post partial colectomy. Anemia. Plan Plan of Care Did not see as was discharged F/u PULM and Primary if MAC + can be referred to office PEMA VIDAL MD Jun 21, 2020 13:17
--- NOTE | 2020-06-21 15:40 | PDOC ---
Provider Note Provider Note Discharge summary dictated.#[id number]. Justicifation of Admission Dx: Justifications for Admission: Justification of Admission Dx: Yes BRII WEBSTER MD Jun 21, 2020 15:40
--- NOTE | 2020-06-21 16:30 | DS ---
DATE OF DISCHARGE: 06/21/2020 REASON FOR ADMISSION TO THE HOSPITAL: Spontaneous right pneumothorax. CONSULTATIONS: 1. Dr. Calderón. 2. Infectious Disease. OTHER PROCEDURES DONE: CT chest. HOSPITAL COURSE: The patient is an 85-year-old female, had remote history of surgery for early colon cancer 10 years ago and she is doing relatively well. She has been losing weight steadily and we had a CT of the chest, abdomen, and pelvis, workup done diagnostic imaging to see for the weight loss. Diagnostic imaging notified that she has spontaneous pneumothorax 30% on the right side, had some infiltrates in the lung. The patient was admitted through the Emergency Room and seen by Pulmonology. CT of the chest remains stable, looks like could be 20% from chronic scarring, but the patient had infiltrates in both lungs. COVID was negative. It was suspicious for possible atypical Mycobacterium. The patient had 2 sputum tests negative, was seen by Infectious Disease, Dr. Mirta Cline. The patient had a CT of the chest with contrast, which shows reticulonodular densities in the lungs. The patient was monitored with serial x-rays. Pneumothorax remained stable. She is on 2 liters and it was felt that the patient could be discharged home and follow with Pulmonary and Infectious Disease once the sputum cultures are available. On the whole, the patient remained stable. Her CBC, CMP were unremarkable. FINAL DIAGNOSES: 1. Spontaneous right pneumothorax. 2. Infiltrates in both lungs, could be suspicious for chronic atypical lung infection. 3. Remote history of partial colon resection for early colon cancer. 4. Hypertension. 5. Chronic obstructive pulmonary disease. DISPOSITION: The patient is discharged home with home health. Continue oxygen and follow up on the sputum cultures and follow with Pulmonary and Infectious Disease. BRII WEBSTER MD DR: KEO/connor JOB#: [id number] / [id number]
[2020-06-23] MEDS ORDERED: ERGOCALCIFEROL (VITAMIN D2) 50,000 UNIT CAPSULE. PO SCH (09:00)
== END 2020-06-21 13:40 | disposition home health service (06) | DRG 199 ==
LOC: ER 10:35 → 6 SOUTH 13:10 → 4 NORTH 06-18 19:11
PROVIDERS: ADMIT Internal Medicine; ATTEND Internal Medicine
DX: J93.83 Other pneumothorax (principal); J96.01 Acute respiratory failure with hypoxia; R64 Cachexia; Z68.1 Body mass index [BMI] 19.9 or less, adult; D64.9 Anemia, unspecified; E03.9 Hypothyroidism, unspecified; E78.5 Hyperlipidemia, unspecified; I10 Essential (primary) hypertension; I25.10 Atherosclerotic heart disease of native coronary artery without angina pectoris; I35.9 Nonrheumatic aortic valve disorder, unspecified; J44.9 Chronic obstructive pulmonary disease, unspecified; J98.09 Other diseases of bronchus, not elsewhere classified; K22.70 Barrett's esophagus without dysplasia; Z20.828 Contact with and (suspected) exposure to other viral communicable diseases; Z82.62 Family history of osteoporosis; Z85.038 Personal history of other malignant neoplasm of large intestine; Z86.73 Personal history of transient ischemic attack (TIA), and cerebral infarction without residual deficits; Z87.891 Personal history of nicotine dependence; Z90.49 Acquired absence of other specified parts of digestive tract; Z90.710 Acquired absence of both cervix and uterus; K21.9 Gastro-esophageal reflux disease without esophagitis; M19.90 Unspecified osteoarthritis, unspecified site; Z88.8 Allergy status to other drugs, medicaments and biological substances
CPT/HCPCS: 36415; 71045; 71260; 80053; 81001; 82150; 83036; 83690; 84443; 84484; 85025; 85610; 85730; 87015; 87040; 87116; 93005; 94618; 94640; 94760; Q9967; 97110-GP; 97116-GP; 97530-GP; 97535-GO; 99285-25; G0378; J7626; U0003-CS